=== PATIENT | male | born 1935 | race Caucasian/White ===

== ENCOUNTER → 2016-04-17 | Outpatient (CLI) | payer OTHER ==
[2015-04-03 12:57] VITALS: BP 146/81; PULSE 69
[~2016-04-17] MED LIST: AMLO-110 PO; ASPCH81X PO; DIVA500T5 PO; FESO4TAB PO; HYDR12.55 PO; METO1TAB31 PO; ROSU5TAB PO; SERT1TAB71 PO; TAMS0.4C38 PO
[2016-04-17 13:46] VITALS: BP_SYST 127; BP_SYST 147; BP_DIAS 77; BP_DIAS 78; PULSE 68; TEMP 36.4; O2SAT 96
--- NOTE | 2016-04-18 08:49 | Radiation Oncology Follow-Up ---
Radiation Oncology Follow-Up Date of Visit Apr 17, 2016. Reason For Visit Annual follow-up Radiation Completion Date Seed implant on 12/28/12 Diagnosis (1) Prostate cancer Status: Resolved Onset Date: 08/30/2012 Location: both lobes of the prostate Histology Subtype: adenocarcinoma Stage: ll Permanent Comment: Abnormal digital rectal examination, pretreatment PSA 3.3 Status post ultrasound-guided biopsy, finding of adenocarcinoma the prostate Biopsy stage T2c Austin grade 3+3 Status post seed implant with cesium 131 on 12/28/2012 as monotherapy Last Edited By: Yancy Fitzpatrick on Apr 03, 2015 13:27 Interim History He's been doing well over this past year. His AUA score was 4. This is unchanged from last year. He completed and expanded prostate cancer index composite for clinical practice and gave a score of one of 12 and urinary incontinence symptoms. He gave a score of 0 12 in urinary irritation symptoms. He gave a score of 0 12 bowel symptoms. He gave score of 6 of 12 in sexual symptoms. He gave a score of one of 12 and hormonal vitality symptoms. His total was 8 of 60. He does continue to take the tamsulosin once daily. He had a PSA 09/20/2015 and it was 0.54. He had a PSA 03/20/2016 which was 0.32. He had previously been on Toviaz for urinary urgency. He steadily improved and no longer requires that medication. Allergies Coded Allergies: Cephalosporins (Verified Allergy, Intermediate, HIVES, 12/24/12) Moxifloxacin (Verified Allergy, Mild, RASH, 12/24/12) Penicillins (Verified Allergy, Mild, 04/20/09) Home Medications Scheduled Amlodipine (Norvasc), 5 MG PO DAILY Aspirin (Aspirin Chewable), 81 MG PO DAILY Divalproex Sodium (Depakote Delay Rel), 250 MG PO QAM Hydrochlorothiazide (Hydrochlorothiazide), 1 TAB PO DAILY Metoprolol Succinate (Toprol Xl), 25 MG PO QAM Rosuvastatin Calcium (Crestor), 5 MG PO HS Sertraline Hcl (Zoloft), 50 MG PO HS Tamsulosin Hcl (Flomax), 0.4 MG PO DAILY Review of Systems Gastrointestinal: Symptoms: WNL GI Comments: No fiber supplements; Oral: Symptoms: No Problems Respiratory: Symptoms: WNL Urinary: Symptoms: WNL Comments: 1 or less voids/night;Taking tamsulosin; Skin: Symptoms: No Problems Physical Exam Vital Signs Date Time Temp Pulse Resp B/P Pulse Ox O2 Delivery O2 Flow Rate FiO2 04/17/16 13:46 36.4 68 16 147/78 96 127/77 Pain: Pain Location: None Patient Pain Scale: 0 - 10 Initial Pain Intensity: 0.0 Fatigue: None General Appearance: no apparent distress Eyes: normal inspection, EOMI ENT: normal ENT inspection, hearing grossly normal Neck: no adenopathy Respiratory/Chest: lungs clear, no respiratory distress, no accessory muscle use Cardiovascular: regular rate, rhythm, no gallop, no murmur Abdomen: non tender, soft, no organomegaly Anal / Rectum: Normal sphincter tone. Prostate without nodules and consistent with seed implant. No rectal masses and no rectal bleeding. Extremities: no pedal edema Neurologic/Psychiatric: no motor/sensory deficits, alert, normal mood/affect Laboratory Studies PSAs as reviewed above. Assessment & Plan Plan: Continue regular follow-up with Dr. Maria he has a follow-up appointment scheduled. We asked him to return to our office in 1 year. An order was given to have a PSA prior to that visit. Copies of the test result will be sent to Dr. Maria and Dr. Smiley. We did discuss possible discontinuation of the tamsulosin. His AUA score is been for over the past 2 years. He stated he will discuss this with Dr. Maria before stopping the medication. Total Time In Follow-Up I spent 15 minutes speaking to the patient performing examination. I spent 15 minutes reviewing information in completing this note. Copy To Saul Maria MD; Karson Smiley D.O.
== END | disposition home or self-care (01) ==
LOC: C.ONC 13:40
PROVIDERS: ATTEND Radiology Radiation Oncology
DX: Z08 Encounter for follow-up examination after completed treatment for malignant neoplasm (principal); Z92.3 Personal history of irradiation; Z85.46 Personal history of malignant neoplasm of prostate

== ENCOUNTER → 2017-04-21 | Outpatient (CLI) | payer OTHER ==
[2015-04-03 12:57] VITALS: BP 146/81; PULSE 69
[~2017-04-21] MED LIST changes: -FESO4TAB PO; +METO-478 PO; -METO1TAB31 PO; +TYLER650 PO
[2017-04-21 13:07] VITALS: BP 144/85; PULSE 62; TEMP 36.4; O2SAT 95
--- NOTE | 2017-04-21 14:18 | Radiation Oncology Follow-Up ---
Radiation Oncology Follow-Up Date of Visit Apr 21, 2017. Reason For Visit Annual visit Radiation Completion Date Seed Implant 12/28/12 Diagnosis (1) Prostate cancer Status: Resolved Onset Date: 08/30/2012 Location: both lobes of prostate Histology Subtype: adenocarcinoma Stage: ll Permanent Comment: Abnormal digital rectal examination, pretreatment PSA 3.3 Status post ultrasound-guided biopsy, finding of adenocarcinoma the prostate Biopsy stage T2c Baxter grade 3+3 Status post seed implant with cesium 131 on 12/28/2012 as monotherapy Last Edited By: Yancy Fitzpatrick on Apr 03, 2015 13:27 Interim History He's been doing well over this past year. His urinary status is stable. He gave an AUA score of 4. Last year he gave a score of 4. He completed and expanded prostate cancer index composite for clinical practice and gave a score of 2 of 12 and urinary incontinence symptoms. He gave a score of one of 12 urinary irritation symptoms. He was score of 0 12 and bowel symptoms. He gave a score of 8 of 12 in sexual symptoms. He gave a score of one of 12 and hormonal vitality symptoms. His total was 12 of 60. He's been followed closely with recheck PSAs. He has these performed at [facility]. He had a PSA 09/18/2016 that was 0.20. On 10/01/2017 the PSA was 0.15. He continues to take tamsulosin. Allergies Coded Allergies: Cephalosporins (Verified Allergy, Intermediate, HIVES, 12/24/12) Moxifloxacin (Verified Allergy, Mild, RASH, 12/24/12) Penicillins (Verified Allergy, Mild, 04/20/09) Home Medications Scheduled Acetaminophen (Tylenol Arthitis Ext Rel), 650 MG PO DAILY Amlodipine (Norvasc), 5 MG PO DAILY Aspirin (Aspirin Chewable), 81 MG PO DAILY Divalproex Sodium (Depakote Delay Rel), 250 MG PO QAM Hydrochlorothiazide (Hydrochlorothiazide), 1 TAB PO DAILY Metoprolol Succinate (Toprol Xl), 25 MG PO QAM Rosuvastatin Calcium (Crestor), 5 MG PO HS Sertraline Hcl (Zoloft), 50 MG PO HS Tamsulosin Hcl (Flomax), 0.4 MG PO DAILY Review of Systems Gastrointestinal: Symptoms: WNL GI Comments: No fiber supplements; Oral: Symptoms: No Problems Respiratory: Symptoms: WNL Urinary: Symptoms: WNL Comments: See AUA & EPIC Skin: Symptoms: No Problems Physical Exam Vital Signs Date Time Temp Pulse Resp B/P (MAP) Pulse Ox O2 Delivery O2 Flow Rate FiO2 04/21/17 13:07 36.4 62 16 144/85 95 Fatigue: None General Appearance: no apparent distress Eyes: normal inspection, EOMI ENT: normal ENT inspection, hearing grossly normal Neck: no adenopathy, thyroid normal Respiratory/Chest: lungs clear, no respiratory distress, no accessory muscle use Cardiovascular: regular rate, rhythm, no gallop, no murmur Abdomen: non tender, soft, no organomegaly Anal / Rectum: External hemorrhoids. Normal sphincter tone. No rectal masses and no rectal bleeding. Last state consistent with the seed implant. Extremities: no pedal edema Neurologic/Psychiatric: no motor/sensory deficits, alert, normal mood/affect Skin: warm/dry Pain Management Patient Reports Pain: No Patient Preferred Pain Scale: 0 - 10 Initial Pain Intensity: 0.0 Pain Management Plan He denied pain therefore requires no pain management. Laboratory Laboratory Results: were reviewed Laboratory Comments: PSAs were reviewed in the interim history. Pathology Pathology Results: not applicable Imaging Imaging Studies: were reviewed, and pertinent findings noted below Assessment & Plan Plan: Again this year we discussed discontinuing the Flomax. His AUA score is very good. He stated that he will discuss it with Dr. Maria. I reviewed with him potential side effects of orthostatic hypotension as well as floppy iris syndrome. He'll continue discuss this with Dr. Maria. He'll be having recheck PSA prior to his next visit. A follow-up appointment with our office was not given. He may now continue his follow-up with Dr. Maria. He may call our office if he has any questions or concerns in the interim. Total Time In Follow-Up I spent 20 minutes speaking to the patient performing examination. I spent 15 minutes reviewing information and completing this note. Copy To Saul Maria MD; Karson Smiley D.O.
== END | disposition home or self-care (01) ==
LOC: C.ONC 13:00
PROVIDERS: ATTEND Physician Assistant Medical
DX: Z08 Encounter for follow-up examination after completed treatment for malignant neoplasm (principal); Z92.3 Personal history of irradiation; Z85.46 Personal history of malignant neoplasm of prostate

== ENCOUNTER 2022-05-03 20:11 | Observation (INO) ==
[2022-05-03] MEDS ORDERED: SODIUM CHLORIDE 0.9% 500 ML IV ONE (20:30)
[2022-05-03] MEDS ORDERED: KETOROLAC TROMETHAMINE 15 MG/ML VIAL IV STA (20:54)
[2022-05-03 20:55] LABS: Basophils # (auto) 0.05 K/uL (0-0.2); Basophils % (auto) 0.6 %; Eosinophils # (auto) 0.39 K/uL (0-0.50); Eosinophils % (auto) 4.3 %; Hemoglobin 14.4 g/dl (14.0-18.0); Immature Granulocytes # (auto) 0.06 K/uL (0.01-0.20); Immature Granulocytes % (auto) 0.7 %; Lymphocytes # (auto) 2.19 K/uL (1.2-3.4); Lymphocytes % (auto) 24.1 %; Mean Corpuscular Hemoglobin 31.6 pg (25.0-34.0); Mean Corpuscular Hgb Conc 35.1 g/dL (32.0-36.0); Mean Corpuscular Volume 89.9 fL (80.0-100.0); Mean Platelet Volume 9.9 fL (9.4-12.4); Monocytes # (auto) 0.66 K/uL (0.11-0.59); Monocytes % (auto) 7.3 %; Neutrophils # (auto) 5.73 K/uL (1.40-6.50); Platelet Count 204 K/uL (130-400); RDW Coefficient of Variation 13.4 % (11.5-14.5); Red Blood Count 4.56 M/uL (4.70-6.10); White Blood Count 9.08 K/ul (4.8-10.8)
--- NOTE | 2022-05-03 21:04 | XRay Report ---
XR chest 1V portable HISTORY: 86 years-old Male Chest pain, nonspecific acute chest pain COMPARISON: 12/16/2012 TECHNIQUE: AP view of the chest FINDINGS: Cardiomediastinal and hilar silhouettes are within normal limits. No pneumothorax, large pleural effu rupinder or overt pulmonary edema. Mild subsegmental bibasilar atelectasis. Bones appear grossly intact. IMPRESSION: No acute process. ACT 112: Negative or not required by law. The above report was generated using voice recognition software. It may contain grammatical, syntax o r spelling errors. Electronically signed by: Alok Tellez M.D. 05/03/2022 9:02 PM
[2022-05-03 21:14] LABS: Albumin Globulin Ratio 1.4 (0.9-2); Albumin Level 4.2 gm/dl (3.4-5.0); BUN Creatinine Ratio 19.5 (10-20); Bilirubin,Total 0.6 mg/dl (0.2-1.0); Calcium 8.7 mg/dl (8.5-10.1); Creatinine Clr Calc Pharmacy 52.9 ml/min; Est GFR (African American) 68.8 ml/min; Est GFR (Non-African American) 59.4 ml/min; Globulin 2.9 gm/dl (2.5-4.0); Magnesium 2.1 mg/dl (1.7-2.4); Phosphorus 2.9 mg/dl (2.5-4.9); Potassium 3.9 mmol/L (3.5-5.1); Total Protein 7.1 gm/dl (6.0-8.3)
[2022-05-03 21:17] LABS: Troponin I High Sensitivity 7.6 pg/ml (0-20)
[2022-05-03 21:24] LABS: INR 0.9 (0.9-1.1); Prothrombin Time 10.1 Seconds (9.0-12.0)
[2022-05-03] MEDS ORDERED: OPTIRAY 320 500ml IV ONE (21:29)
--- NOTE | 2022-05-03 22:04 | CT Scan Report ---
CT angio chest PE protocol CT DOSE: 703.88 mGy.cm HISTORY: 86 years-old Male with left sided cp, sob, r/o PE. Acute left-sided chest pain with shortn ess of breath TECHNIQUE: Multiple CTA images of the chest were obtained after the intravenous administration of 113 ml Optiray. Coronal and sagittal MIPS were obtained from the axial data set and were submitted for review. All measurements were obtained according to NASCET criteria. A dose lowering technique was u tilized adhering to the principles of ALARA. COMPARISON: None. FINDINGS: CTA: Heart is normal in size. Extensive coronary artery calcifications. No thoracic aortic aneurysm or dis section. The lobar, segmental and subsegmental pulmonary emboli within the left upper lobe and lingul a. No definite evidence of right heart strain. CT CHEST: No thyroid nodule or lymphadenopathy identified. Trace left pleural effusion. The inferior right lung base is only partially imaged. No pneumothorax o r overt pulmonary edema. Mild left basilar atelectasis with subsegmental consolidation of the inferio r segment lingula. No acute process of the imaged upper abdomen. Unremarkable soft tissues. Degenerative changes of the shoulders and spine. IMPRESSION: 1. Acute appearing left-sided pulmonary emboli with trace left pleural effusion. 2. Subsegmental consolidation of the inferior segment lingula may represent atelectasis versus a smal l developing pulmonary infarct. ACT 112: Negative or not required by law. The above report was generated using voice recognition software. It may contain grammatical, syntax o r spelling errors. Electronically signed by: Alok Tellez M.D. 05/03/2022 10:02 PM
--- NOTE | 2022-05-03 22:45 | Emergency Department Note ---
Impression & Plan Pulmonary embolism on left, Pulmonary infarct, Pleuritic chest pain, History of COVID-19 ED Provider Note NAME: TIGRE ESPOSITO AGE: 86 SEX: M ARRIVES VIA: Walk-In INFORMANT: Patient ED PROVIDER(S): Harvinder Betancourt MD CHIEF COMPLAINT: Chest pain PLAN: Disposition: Admit MEDICAL DECISION MAKING: The patient is a pleasant 86-year-old gentleman with a past medical history of hypertension, hyperlipidemia, asthma who presents to the emergency department via walk-in for evaluation of left-sided chest pain that has been ongoing since yesterday evening which began in his shoulder and radiates to his left shoulder blade and has been constant since then. He reports ongoing shortness of breath with minimal exertion ever since having COVID-19 in February and does not feel this is changed in any way. He reports in March it was suspected he had a bacterial infection following his COVID and so completed 10 days of antibiotics after which she reports his cough and congestion improved significantly. He denies any fevers, nausea, vomiting, diarrhea or urinary symptoms. He is not on anticoagulation. On arrival the patient is in no acute distress, afebrile stable vital signs. O2 saturations 95% on room air. EKG without overt acute ischemia. CXR negative for acute cardiopulmonary process. WBC and platelets within normal limits. Hemoglobin within normal limits. Chemistry without metabolic acidosis. Electrolytes LFTs unremarkable. High-sensitivity troponin 7.6, within normal limits. Lipase not elevated. Given the patient's relatively recent COVID-19 infection with pleuritic symptoms we did agree to proceed with CTA of the chest. CT demonstrates acute appearing left-sided pulmonary emboli with trace left pleural effusion that correlates wi th the patient's symptoms. Note is made of subsegmental consolidation of the inferior lingula which may represent atelectasis versus small developing pulmonary infarct. Given the extent of the CT findings reasonable to proceed with admission for further management, and the patient was in agreement. Case was discussed with Dr. Odell, [facility] hospitalist, who will evaluate the patient for admission. Agrees with heparin to initiate treatment. Patient denies any history of GI bleeding or bleeding otherwise. Triage Nursing notes reviewed and agree them. Prior/outside medical records reviewed Vital Signs: reviewed Differential diagnosis: Cardiac ischemia, aortic dissection, pulmonary embolism, pneumothorax, pneum onia, pericarditis, myocarditis, esophageal rupture, GERD, cholecystitis, pancreatitis, musculoskeletal, as well as other pathologies. ER treatment provided: See below. Diagnostics interpreted by me: ECG: Normal sinus rhythm, 72 bpm, no ectopy, nonspecific ST and T wave abnormality, no overt ST elevation or depression, QTc 451, cures 96 Cardiac Monitoring: An order for continuous cardiac monitoring was placed and demonstrated Normal sinus rhythm, 72 bpm, no ectopy. Laboratory studies: See below Imaging studies: See below Consultation(s): Case was discussed with Dr. Odell, [facility] hospitalist, who will evaluate the patient for admission. HPI: The patient is a pleasant 86-year-old gentleman with a past medical history of hypertension, hyperlipidemia, asthma who presents to the emergency department via walk-in for evaluation of left-sided chest pain that has been ongoing since yesterday evening which began in his shoulder and radiates to his left shoulder blade and has been constant since then. He reports ongoing shortness of breath with minimal exertion ever since having COVID-19 in February and does not feel this is changed in any way. He reports in March it was suspected he had a bacterial infection following his COVID and so completed 10 days of antibiotics after which she reports his cough and congestion improved significantly. He denies any fevers, nausea, vomiting, diarrhea or urinary symptoms. He is not on anticoagulation. ROS: See above HPI for pertinent positives & negatives. A total of 10 systems reviewed and were otherwise negative. VITALS:See Below PHYSICAL EXAMINATION: GENERAL: Awake, alert, well-appearing, in no distress HENT: Normocephalic, atraumatic. Oropharynx with dry mucous membranes and otherwise unremarkable. EYES: Normal conjunctiva. Sclera non-icteric. NECK: Supple. No nuchal rigidity. FROM. No JVD. RESPIRATORY: Clear to auscultation. CARDIAC: Regular rate, normal rhythm. Extremities warm and well perfused. Pulses equal. ABDOMEN: Soft, non-distended. No tenderness to palpation. No rebound or guarding. No masses. RECTAL: Deferred. MUSCULOSKELETAL: Chest examination reveals no tenderness. The back is symmetrical on inspection without obvious abnormality. There is no CVA tenderness to palpation. No joint edema. LOWER EXTREMITIES: Calves are equal size bilaterally and non-tender. No edema. No discoloration. NEURO: Normal sensorium. No sensory or motor deficits noted. SKIN: No rash or jaundice noted. ED COURSE: Critical Care: I have personally spent greater than 35 minutes of critical care time in the direct management of this patient. This includes bedside care, interpretation of diagnostic studies, and testing, discussion with consultants, patient, and family members, and other required patient management activities. This 35 minutes is in excess of all separately billable procedures. Harvinder Betancourt MD Past Med/Surg History Medical History Anxiety Epistaxis HX History of COVID-19 Hyperlipidemia Hypertension Migraine HX Osteoarthritis Prostate cancer (08/30/12) RESOLVED FOR 5 YRS NOW - RADIOACTIVE SEEDS Surgical History History of adenoidectomy History of colonoscopy History of nasal surgery POLYPS REMOVED History of right cataract surgery History of tonsillectomy Hx of hernia repair Family History Other Colorectal cancer Social History Smoking Status: Former smoker Second Hand Exposure: No; Hx Alcohol Use: Yes Alcohol type: beer Hx Substance Use: No Preferred Language: Eritrean Communication Ability: Effective Print Color Operator Required: No Beliefs That Will Affect Care: None marital status: Current Living Situation: Spouse Feels Safe at Home: Yes Assistive Devices: Glasses and Hearing Aid - Left Allergies Allergies Allergy/AdvReac Type Severity Reaction Status Date / Time Cephalosporins Allergy Intermediate HIVES Verified 05/03/22 22:03 moxifloxacin Allergy Mild RASH Verified 05/03/22 22:03 Penicillins Allergy Mild Hives Verified 05/03/22 22:03 Home Meds Home Medications Medication Instructions Recorded Confirmed acetaminophen 650 mg 650 mg PO QAM 04/08/18 05/03/22 tablet,extended release (Tylenol Arthritis Pain) amlodipine 5 mg tablet 5 mg PO QAM 04/08/18 05/03/22 divalproex 250 mg tablet,delayed 250 mg PO QAM 04/08/18 05/03/22 release hydrochlorothiazide 12.5 mg capsule 12.5 mg PO HS 04/08/18 05/03/22 metoprolol succinate 25 mg 25 mg PO QAM 04/08/18 05/03/22 tablet,extended release 24 hr rosuvastatin 5 mg tablet 5 mg PO QPM 04/08/18 05/03/22 budesonide 0.5 mg/2 mL suspension 0.5 mg inhalation DAILY PRN 05/03/22 05/03/22 for nebulization (Pulmicort) Congestion diclofenac sodium 1 % topical gel 1 ea topical DAILY 05/03/22 05/03/22 loperamide 2 mg tablet 2 mg PO QID PRN Diarrhea 05/03/22 05/03/22 losartan 50 mg tablet 50 mg PO QAM 05/03/22 05/03/22 sertraline 100 mg tablet 100 mg PO QAM 05/03/22 05/03/22 Previous Rx's Medication Instructions Recorded solifenacin 5 mg tablet (Vesicare) 5 mg PO DAILY #90 tabs 11/26/21 tamsulosin 0.4 mg capsule 0.4 mg PO DAILY #90 caps 11/26/21 Results & Data (ED) Vital Signs Vital Signs - 24 hr 05/03/22 20:14 05/03/22 20:29 05/03/22 20:29 Temperature 36.6 C Temperature Source Temporal Artery Scan Pulse Rate 81 68 Pulse Rate [Apical] 68 Pulse Rate from SpO2 Sensor Pulse Rhythm Respiratory Rate 18 20 20 Respiratory Effort / Characteristics Non-Labored Spontaneous Respiratory Depth Normal Respiratory Pattern Regular Blood Pressure 148/94 H 150/86 H Blood Pressure [Right Arm] Blood Pressure Mean 112 107 Blood Pressure Mean [Right Arm] Pulse Oximetry 94 96 96 Oxygen Delivery Method Room Air Room Air Room Air Sepsis Recent Fever Within 48 Hours No Sepsis New/Unexplained Change in Mental Status No Sepsis Action Taken by Nursing No Action Required 05/03/22 20:29 05/03/22 20:45 05/03/22 20:37 Temperature Temperature Source Pulse Rate 68 73 Pulse Rate [Apical] Pulse Rate from SpO2 Sensor Pulse Rhythm Regular Respiratory Rate 20 Respiratory Effort / Characteristics Respiratory Depth Respiratory Pattern Blood Pressure Blood Pressure [Right Arm] Blood Pressure Mean Blood Pressure Mean [Right Arm] Pulse Oximetry 96 98 Oxygen Delivery Method Room Air Room Air Sepsis Recent Fever Within 48 Hours Sepsis New/Unexplained Change in Mental Status Sepsis Action Taken by Nursing 05/03/22 22:14 05/03/22 20:37 05/03/22 21:00 Temperature Temperature Source Pulse Rate 74 Pulse Rate [Apical] 66 Pulse Rate from SpO2 Sensor 75 Pulse Rhythm Respiratory Rate 19 22 Respiratory Effort / Characteristics Respiratory Depth Respiratory Pattern Blood Pressure 129/77 Blood Pressure [Right Arm] 142/81 H Blood Pressure Mean 94 Blood Pressure Mean [Right Arm] 101 Pulse Oximetry 95 96 Oxygen Delivery Method Sepsis Recent Fever Within 48 Hours Sepsis New/Unexplained Change in Mental Status Sepsis Action Taken by Nursing 05/03/22 21:00 05/03/22 22:13 05/03/22 22:14 Temperature Temperature Source Pulse Rate 64 78 Pulse Rate [Apical] Pulse Rate from SpO2 Sensor 64 Pulse Rhythm Respiratory Rate 17 Respiratory Effort / Characteristics Respiratory Depth Respiratory Pattern Blood Pressure 142/81 H Blood Pressure [Right Arm] Blood Pressure Mean 101 Blood Pressure Mean [Right Arm] Pulse Oximetry 96 Oxygen Delivery Method Sepsis Recent Fever Within 48 Hours Sepsis New/Unexplained Change in Mental Status Sepsis Action Taken by Nursing 05/03/22 22:14 05/03/22 22:30 05/03/22 22:30 Temperature Temperature Source Pulse Rate 66 62 Pulse Rate [Apical] Pulse Rate from SpO2 Sensor 70 63 Pulse Rhythm Respiratory Rate 17 20 Respiratory Effort / Characteristics Respiratory Depth Respiratory Pattern Blood Pressure 138/90 Blood Pressure [Right Arm] Blood Pressure Mean 106 Blood Pressure Mean [Right Arm] Pulse Oximetry 95 96 Oxygen Delivery Method Sepsis Recent Fever Within 48 Hours Sepsis New/Unexplained Change in Mental Status Sepsis Action Taken by Nursing 05/03/22 23:00 05/03/22 23:00 05/03/22 23:30 Temperature Temperature Source Pulse Rate 60 Pulse Rate [Apical] Pulse Rate from SpO2 Sensor 61 Pulse Rhythm Respiratory Rate 21 Respiratory Effort / Characteristics Respiratory Depth Respiratory Pattern Blood Pressure 145/92 H 151/90 H Blood Pressure [Right Arm] Blood Pressure Mean 109 110 Blood Pressure Mean [Right Arm] Pulse Oximetry 95 Oxygen Delivery Method Sepsis Recent Fever Within 48 Hours Sepsis New/Unexplained Change in Mental Status Sepsis Action Taken by Nursing 05/03/22 23:30 Temperature Temperature Source Pulse Rate 61 Pulse Rate [Apical] Pulse Rate from SpO2 Sensor 61 Pulse Rhythm Respiratory Rate 22 Respiratory Effort / Characteristics Respiratory Depth Respiratory Pattern Blood Pressure Blood Pressure [Right Arm] Blood Pressure Mean Blood Pressure Mean [Right Arm] Pulse Oximetry 96 Oxygen Delivery Method Sepsis Recent Fever Within 48 Hours Sepsis New/Unexplained Change in Mental Status Sepsis Action Taken by Nursing Laboratory Data Attestation: I reviewed the patient's lab results. 05/03/22 20:41 05/03/22 20:41 Lab Results 02/05/03/22 05/03/22 Range/Units 20:41 20:41 20:41 WBC 9.08 (4.8-10.8) K/ul RBC 4.56 L (4.70-6.10) M/uL Hgb 14.4 (14.0-18.0) g/dl Hct 41.0 L (42.0-52.0) % MCV 89.9 (80.0-100.0) fL MCH 31.6 (25.0-34.0) pg MCHC 35.1 (32.0-36.0) g/dL RDW Std Deviation 44.0 (36.4-46.3) fL RDW Coeff of Quin 13.4 (11.5-14.5) % Plt Count 204 (130-400) K/uL MPV 9.9 (9.4-12.4) fL Immature Gran % (Auto) 0.7 % Neut % (Auto) 63.0 % Lymph % (Auto) 24.1 % Bureau % (Auto) 7.3 % Eos % (Auto) 4.3 % Baso % (Auto) 0.6 % Neut # (Auto) 5.73 (1.40-6.50) K/uL Lymph # (Auto) 2.19 (1.2-3.4) K/uL Bureau # (Auto) 0.66 H (0.11-0.59) K/uL Eos # (Auto) 0.39 (0-0.50) K/uL Baso # (Auto) 0.05 (0-0.2) K/uL Immature Gran # (Auto) 0.06 (0.01-0.20) K/uL PT 10.1 (9.0-12.0) Seconds INR 0.9 (0.9-1.1) APTT (21.0-31.0) Seconds PTT Ratio Sodium 138 (136-145) mmol/L Potassium 3.9 (3.5-5.1) mmol/L Chloride 104 (98-107) mmol/L Carbon Dioxide 28 (21-32) mmol/L Anion Gap 6 (3-11) BUN 22 (6-23) mg/dl Creatinine 1.13 (0.6-1.4) mg/dl Est Cr Clr Drug Dosing 52.9 ml/min Est GFR ( Amer) 68.8 ml/min Est GFR (Non-Af Amer) 59.4 ml/min BUN/Creatinine Ratio 19.5 (10-20) Glucose 153 H (70-99(Fasting)) mg/dl Calcium 8.7 (8.5-10.1) mg/dl Phosphorus 2.9 (2.5-4.9) mg/dl Magnesium 2.1 (1.7-2.4) mg/dl Total Bilirubin 0.6 (0.2-1.0) mg/dl AST 16 (13-39) U/L ALT 17 (7-52) U/L Alkaline Phosphatase 54 (34-104) U/L Troponin I High Sens 7.6 (0-20) pg/ml Total Protein 7.1 (6.0-8.3) gm/dl Albumin 4.2 (3.4-5.0) gm/dl Globulin 2.9 (2.5-4.0) gm/dl Albumin/Globulin Ratio 1.4 (0.9-2) Lipase 33 (11-82) U/L 05/03/22 Range/Units 20:41 WBC (4.8-10.8) K/ul RBC (4.70-6.10) M/uL Hgb (14.0-18.0) g/dl Hct (42.0-52.0) % MCV (80.0-100.0) fL MCH (25.0-34.0) pg MCHC (32.0-36.0) g/dL RDW Std Deviation (36.4-46.3) fL RDW Coeff of Quin (11.5-14.5) % Plt Count (130-400) K/uL MPV (9.4-12.4) fL Immature Gran % (Auto) % Neut % (Auto) % Lymph % (Auto) % Bureau % (Auto) % Eos % (Auto) % Baso % (Auto) % Neut # (Auto) (1.40-6.50) K/uL Lymph # (Auto) (1.2-3.4) K/uL Bureau # (Auto) (0.11-0.59) K/uL Eos # (Auto) (0-0.50) K/uL Baso # (Auto) (0-0.2) K/uL Immature Gran # (Auto) (0.01-0.20) K/uL PT (9.0-12.0) Seconds INR (0.9-1.1) APTT 30.2 (21.0-31.0) Seconds PTT Ratio 1.1 Sodium (136-145) mmol/L Potassium (3.5-5.1) mmol/L Chloride (98-107) mmol/L Carbon Dioxide (21-32) mmol/L Anion Gap (3-11) BUN (6-23) mg/dl Creatinine (0.6-1.4) mg/dl Est Cr Clr Drug Dosing ml/min Est GFR ( Amer) ml/min Est GFR (Non-Af Amer) ml/min BUN/Creatinine Ratio (10-20) Glucose (70-99(Fasting)) mg/dl Calcium (8.5-10.1) mg/dl Phosphorus (2.5-4.9) mg/dl Magnesium (1.7-2.4) mg/dl Total Bilirubin (0.2-1.0) mg/dl AST (13-39) U/L ALT (7-52) U/L Alkaline Phosphatase (34-104) U/L Troponin I High Sens (0-20) pg/ml Total Protein (6.0-8.3) gm/dl Albumin (3.4-5.0) gm/dl Globulin (2.5-4.0) gm/dl Albumin/Globulin Ratio (0.9-2) Lipase (11-82) U/L Administered Medications Heparin Sodium/Dextrose (Heparin Sodium/Dextrose) 25,000 units in 500 mls @ 0.02 mls/hr IV .Q24H [facility]; Protocol Stop: 06/02/22 23:29 Last Admin: 05/03/22 23:31 Dose: 1,400 units/hr, 28 mls/hr Documented By: MAYRA Co-signed By: GARTH Discontinued Medications Heparin Sodium (Porcine) (Heparin Sod (Porcine) 1000 Unit/Ml) 1 units IV NOW ONE Stop: 05/03/22 23:28 Last Admin: 05/03/22 23:31 Dose: 6,000 units Documented By: MAYRA Co-signed By: GARTH Heparin Sodium/Dextrose (Heparin Iv Adult Wt-Based Standard With Bolus Protocol) 1 each IV NOW STA; Protocol Stop: 05/03/22 23:12 Last Admin: 05/03/22 23:32 Dose: Not Given Documented By: MAYRA Sodium Chloride (Nss) 500 mls @ 999 mls/hr IV .Q31M ONE Stop: 05/03/22 21:00 Last Infusion: 05/03/22 21:01 Dose: 0 mls/hr Documented By: Admin: 05/03/22 20:51 Dose: 999 mls/hr Documented By: LETICIA Ioversol (Optiray 320 500ml) 113 ml IV ONCE ONE Stop: 05/03/22 21:30 Last Admin: 05/03/22 21:30 Dose: 113 ml Documented By: NU Ketorolac Tromethamine (Ketorolac Tromethamine 15 Mg/Ml Vial) 15 mg IV NOW STA Stop: 05/03/22 20:55 Last Admin: 05/03/22 21:15 Dose: 15 mg Documented By: LETICIA Imaging Data Radiologist's Impression: Chest X-Ray 05/03/22 20:30 XR chest 1V portable HISTORY: 86 years-old Male Chest pain, nonspecific acute chest pain COMPARISON: 12/16/2012 TECHNIQUE: AP view of the chest FINDINGS: Cardiomediastinal and hilar silhouettes are within normal limits. No pneumothorax, large pleural effusion or overt pulmonary edema. Mild subsegmental bibasilar atelectasis. Bones appear grossly intact. IMPRESSION: No acute process. ACT 112: Negative or not required by law. The above report was generated using voice recognition software. It may contain grammatical, syntax or spelling errors. Electronically signed by: Alok Tellez M.D. 05/03/2022 9:02 PM Chest CTA 05/03/22 20:54 CT angio chest PE protocol CT DOSE: 703.88 mGy.cm HISTORY: 86 years-old Male with left sided cp, sob, r/o PE. Acute left-sided chest pain with shortness of breath TECHNIQUE: Multiple CTA images of the chest were obtained after the intravenous administration of 113 ml Optiray. Coronal and sagittal MIPS were obtained from the axial data set and were submitted for review. All measurements were obtained according to NASCET criteria. A dose lowering technique was utilized a dhering to the principles of ALARA. COMPARISON: None. FINDINGS: CTA: Heart is normal in size. Extensive coronary artery calcifications. No thoracic aortic aneurysm or dissection. The lobar, segmental and subsegmental pulmonary emboli within the left upper lobe and lingula. No definite evidence of right hea rt strain. CT CHEST: No thyroid nodule or lymphadenopathy identified. Trace left pleural effusion. The inferior right lung base is only partially imaged. No pneumothorax or overt pulmonary edema. Mild left basilar atelectasis with subsegmental consolidation of the inferior segment lingula. No acute process of the imaged upper abdomen. Unremarkable soft tissues. Degenerative changes of the shoulders and spine. IMPRESSION: 1. Acute appearing left-sided pulmonary emboli with trace left pleural effusion. 2. Subsegmental consolidation of the inferior segment lingula may represent atelectasis versus a small developing pulmonary infarct. ACT 112: Negative or not required by law. The above report was generated using voice recognition software. It may contain grammatical, syntax or spelling errors. Electronically signed by: Alok Tellez M.D. 05/03/2022 10:02 PM Discharge Plan Visit Data Chief Complaint: Chest Pain Stated Complaint: DISCOMFORT AND PAIN IN CHEST ED Provider: Harvinder Betancourt Discharge Problem: Pulmonary embolism on left, Pulmonary infarct, Pleuritic chest pain, History of COVID-19 Forms Stand Alone Forms: My [facility] [employer] Prescriptions Prescriptions: No Action tamsulosin 0.4 mg capsule 0.4 mg PO DAILY Qty: 90 3RF Rx Instructions: 30 minutes after a meal solifenacin [Vesicare] 5 mg tablet 5 mg PO DAILY Qty: 90 3RF divalproex 250 mg tablet,delayed release (DR/EC) 250 mg PO QAM amlodipine 5 mg tablet 5 mg PO QAM acetaminophen [Tylenol Arthritis Pain] 650 mg Tablet Extended Release 650 mg PO QAM hydrochlorothiazide 12.5 mg capsule 12.5 mg PO HS metoprolol succinate 25 mg tablet extended release 24 hr 25 mg PO QAM rosuvastatin 5 mg tablet 5 mg PO QPM loperamide 2 mg Tablet 2 mg PO QID PRN (Reason: Diarrhea) budesonide [Pulmicort] 0.5 mg/2 mL Suspension For Nebulization 0.5 mg inhalation DAILY PRN (Reason: Congestion) diclofenac sodium 1 % gel 1 ea TOPICAL DAILY Rx Instructions: apply to bilat hands sertraline 100 mg tablet 100 mg PO QAM losartan 50 mg tablet 50 mg PO QAM Referrals Referrals: Gera Alvarado DO [Primary Care Provider] -
[2022-05-03] MEDS ORDERED: Heparin IV Adult Wt-Based Standard WITH Bolus Protocol IV STA (23:11)
[2022-05-03] MEDS ORDERED: HEPARIN SOD (PORCINE) 1000 UNIT/ML IV ONE (23:27)
[2022-05-03] MEDS: HEPARIN SODIUM/DEXTROSE 25,000 UNITS/500 ML BAG IV SCH (23:31)
[2022-05-03 23:47] LABS: Partial Thromboplastin Ratio 1.1; Partial Thromboplastin Time 30.2 Seconds (21.0-31.0)
[2022-05-04] MEDS ORDERED: oxyCODONE HCL IR 5 MG TAB (IMMEDIATE RELEASE) PO PRN (01:59)
[2022-05-04] MEDS ORDERED: ACETAMINOPHEN 325 MG TAB PO PRN (01:59)
[2022-05-04] MEDS ORDERED: POLYETHYLENE (MIRALAX) 17 GM PACK PO PRN (01:59)
[2022-05-04] MEDS ORDERED: BUDESONIDE 0.5 MG/2 ML VIAL (PULMICORT) INH PRN (01:59)
[2022-05-04] MEDS ORDERED: SODIUM CHLORIDE 0.9% 1000ML 1,000 ML IV SCH (01:59)
[2022-05-04] MEDS ORDERED: NITROGLYCERIN SL 0.4 MG/TAB TAB SL PRN (01:59)
--- NOTE | 2022-05-04 05:07 | History and Physical Report ---
DATE OF ADMISSION: 05/04/2022. CHIEF COMPLAINT: Left-sided chest pain, found to have acute PE. HISTORY OF PRESENT ILLNESS: An 86-year-old male with past medical history significant for hyperlipidemia, history of recurrent epistaxis, history of obstructive sleep apnea, on CPAP, hypertension, chronic kidney disease, stage III, history of prostate cancer, history of osteoarthritis, generalized anxiety disorder, presents with chest pain. The patient since yesterday evening having left-sided chest pain 4/10 in severity, no radiation. The patient says has some dizziness and balance issues. No headache, no blurred visions, no earache, no runny nose, no sore throat. The patient was diagnosed with COVID in the end of February. He has chronic shortness of breath, but after COVID sob got little worse .Says he was treated with antibiotics in March for sinusitis. Says chest pain gets worse with deep breath.. Denies any nausea, no abdominal pain. Normal bowel and bladder movements. Denies any bloody stools or black stools. No hematuria. No swelling in the legs. Currently, resting comfortably, hemodynamically stable, saturating okay on room air. ALLERGIES: CEPHALOSPORINS, MOXIFLOXACIN, PENICILLIN. PAST MEDICAL HISTORY: As mentioned above. PAST SURGICAL HISTORY: Colonoscopy, laparoscopic left inguinal hernia repair, nasal endoscopy, cataract surgery, tonsillectomy, adenoidectomy, bilateral inguinal hernia repairs, umbilical hernia repair. MEDICATIONS: The patient is on Tylenol 650 mg p.o. q.a.m., amlodipine 5 mg p.o. a.m., Pulmicort 0.5 mg inhalation daily p.r.n. for congestion, diclofenac sodium topical daily, divalproex 250 mg p.o. a.m., hydrochlorothiazide 12.5 mg p.o. at bedtime, loperamide 2 mg p.o. q.i.d. p.r.n., losartan 50 mg p.o. a.m., metoprolol succinate 25 mg p.o. a.m., rosuvastatin 50 mg p.o. p.m., Seroquel 100 mg p.o. a.m., solifenacin 5-mg tablet p.o. daily, Flomax 0.4 mg p.o. daily. FAMILY HISTORY: Significant for father had heart disorder; mother has heart disorder, hypertension. SOCIAL HISTORY: , no smoking, alcohol rare, no drug use. REVIEW OF SYSTEMS: As per HPI. Rest of review of systems is negative. PHYSICAL EXAMINATION: GENERAL: The patient is obese, not in acute distress. VITAL SIGNS: Temperature 36.6, pulse 61, respiratory rate 22, blood pressure 151/90, oxygen 96% on room air. HEENT: Pupils equal, round and reactive to light. Oral mucosa moist. NECK: No JVD, no neck masses. CARDIOVASCULAR: S1 and S2 heard. Regular rate and rhythm. No murmur, no gallop. RESPIRATORY SYSTEM: Normal AP diameter. No accessory muscle use. No wheezing, no crackles. ABDOMEN: Soft, bowel sounds present, nontender, no distention. CENTRAL NERVOUS SYSTEM: Cranial nerves II through XII grossly intact. Nonfocal. EXTREMITIES: No edema, no erythema, no calf tenderness. LABORATORY DATA: WBC 9, hemoglobin 14.4, hematocrit 41, platelets 204. PT 10.1, INR 0.9, APTT 30.2. Sodium 138, potassium 3.9, chloride 104, bicarb 28, BUN 22, creatinine 1.1, serum glucose 153, calcium 8.7, phosphorus 2.9, magnesium 2.1, total bilirubin 0.6, AST 16, ALT 17, alkaline phosphatase 54. Troponin I high sensitivity 7.6. Lipase 33. IMAGING DATA: Chest x-ray, no acute process. CTA chest 1. Acute appearing left-sided pulmonary emboli with trace left pleural effusion. 2. Subsegmental consolidation of the inferior segment lingula may represent atelectasis versus a small developing pulmonary infarct. EKG: Normal sinus rhythm at a rate of 72, nonspecific ST abnormalities seen. ASSESSMENT AND PLAN: This is an 86-year-old male, who presents with chest pain. 1. Chest pain and also pain was more when taking deep breath. Troponins and EKG, no acute findings. CTA chest showing acute-appearing left-sided pulmonary emboli with trace left pleural effusion, was started on IV heparin in the ER. We will continue with IV heparin for now. We will follow echocardiogram and lower extremity Doppler. For now, we will monitor in the hospital. 2. History of hypertension. Continue amlodipine, losartan, hydrochlorothiazide, metoprolol succinate. We will monitor the blood pressure. 3. History of sleep apnea. CPAP at bedtime. 4. Hyperlipidemia. On statin. 5. Chronic kidney disease, stage III. Creatinine 1.1. Follow the labs. 6. Generalized anxiety disorder. The patient is on Zoloft. 7. Deep venous thrombosis prophylaxis. On IV heparin. DISPOSITION: Closely monitor in the med tele. PT/OT prior to discharge. Social service to help with discharge planning. Job ID: [id number] [facility]
[2022-05-04 06:43] LABS: Basophils # (auto) 0.08 K/uL (0-0.2); Basophils % (auto) 0.9 %; Eosinophils # (auto) 0.42 K/uL (0-0.50); Eosinophils % (auto) 4.8 %; Hematocrit (blood only) 38.6 % (42.0-52.0); Hemoglobin 13.1 g/dl (14.0-18.0); Immature Granulocytes # (auto) 0.04 K/uL (0.01-0.20); Immature Granulocytes % (auto) 0.5 %; Lymphocytes # (auto) 2.58 K/uL (1.2-3.4); Lymphocytes % (auto) 29.3 %; Mean Corpuscular Hemoglobin 30.8 pg (25.0-34.0); Mean Corpuscular Hgb Conc 33.9 g/dL (32.0-36.0); Mean Corpuscular Volume 90.6 fL (80.0-100.0); Mean Platelet Volume 10.3 fL (9.4-12.4); Monocytes # (auto) 0.71 K/uL (0.11-0.59); Neutrophils # (auto) 4.99 K/uL (1.40-6.50); Neutrophils % (auto) 56.5 %; Platelet Count 176 K/uL (130-400); RDW Coefficient of Variation 13.3 % (11.5-14.5); RDW Standard Deviation 44.4 fL (36.4-46.3); Red Blood Count 4.26 M/uL (4.70-6.10); White Blood Count 8.82 K/ul (4.8-10.8)
[2022-05-04 07:17] LABS: BUN Creatinine Ratio 17.5 (10-20); Calcium 8.6 mg/dl (8.5-10.1); Est GFR (African American) 60.3 ml/min; Magnesium 2.2 mg/dl (1.7-2.4); Potassium 4.7 mmol/L (3.5-5.1); Troponin I High Sensitivity 9.2 pg/ml (0-20)
[2022-05-04 07:35] LABS: Partial Thromboplastin Ratio 2.3
[2022-05-04 07:38] LABS: Partial Thromboplastin Time 64.3 Seconds (21.0-31.0)
[2022-05-04] MEDS: DIVALPROEX DELAY RELEASE 250 MG TABEC PO SCH (08:09)
[2022-05-04] MEDS: LOSARTAN POTASSIUM 50 MG TAB PO SCH (08:09)
[2022-05-04] MEDS: METOPROLOL SUCC 25MG EXT REL TAB PO SCH (08:09)
[2022-05-04] MEDS: amLODIPine BESYLATE 5 MG TAB PO SCH (08:09)
[2022-05-04] MEDS: SERTRALINE HCL 100 MG TABLET PO SCH (08:10)
[2022-05-04] MEDS: TAMSULOSIN HCL 0.4 MG CAP PO SCH (08:10)
--- NOTE | 2022-05-04 11:27 | Electrocardiogram Report ---
Test Reason : Blood Pressure : / mmHG Vent. Rate : 072 BPM Atrial Rate : 072 BPM P-R Int : 182 ms QRS Dur : 096 ms QT Int : 412 ms P-R-T Axes : 051 062 091 degrees QTc Int : 451 ms Normal sinus rhythm Normal ECG When compared with ECG of 16-DEC-2012 12:32, No significant change was found Confirmed by iNgel Montes ([id number]) on 05/04/2022 11:27:30 AM Referred By: REFERRED SELF Confirmed By:Nigel Montes
[2022-05-04] MEDS: HEPARIN SODIUM/DEXTROSE 25,000 UNITS/500 ML BAG IV SCH (16:51)
--- NOTE | 2022-05-04 16:56 | Ultrasound Report ---
ULTRASOUND BILATERAL LOWER EXTREMITY VENOUS CLINICAL HISTORY: Pulmonary embolus. Covid. COMPARISON STUDY: No priors. TECHNIQUE: Real-time, grayscale, and color Doppler sonography of the deep veins of the right and left lower extremity was performed from the inguinal crease to the calf. Compression and augmentation wer e utilized. FINDINGS: There is no sonographic evidence of deep venous thrombosis identified in the right or left lower extremity. The common femoral, superficial femoral, and popliteal veins are patent and normally compressible bilaterally. The greater saphenous vein and the profunda femoris vein at the junction w ith the common femoral vein are clear in both legs. The visualized calf veins are patent bilaterally. IMPRESSION: There is no sonographic evidence of deep venous thrombosis identified in the right or lef t lower extremity. ACT 112: Negative or not required by law. Electronically signed by: Milad Chambers M.D. 05/04/2022 4:54 PM
[2022-05-04] MEDS ORDERED: ROSUVASTATIN CALCIUM 5 MG TAB PO SCH (21:00)
[2022-05-04] MEDS ORDERED: hydroCHLOROthiazide 25 MG TAB PO SCH (21:00)
[2022-05-05 07:16] LABS: Partial Thromboplastin Ratio 1.9
[2022-05-05 07:18] LABS: Partial Thromboplastin Time 53.5 Seconds (21.0-31.0)
[2022-05-05] MEDS: METOPROLOL SUCC 25MG EXT REL TAB PO SCH (08:45)
[2022-05-05] MEDS: amLODIPine BESYLATE 5 MG TAB PO SCH (08:45)
[2022-05-05] MEDS: DIVALPROEX DELAY RELEASE 250 MG TABEC PO SCH (08:45)
[2022-05-05] MEDS: LOSARTAN POTASSIUM 50 MG TAB PO SCH (08:45)
[2022-05-05] MEDS: SERTRALINE HCL 100 MG TABLET PO SCH (08:46)
[2022-05-05] MEDS: TAMSULOSIN HCL 0.4 MG CAP PO SCH (08:46)
[2022-05-05 10:28] LABS: Hemoglobin 13.4 g/dl (14.0-18.0); Mean Corpuscular Hemoglobin 30.9 pg (25.0-34.0); Mean Corpuscular Hgb Conc 34.4 g/dL (32.0-36.0); Mean Corpuscular Volume 90.1 fL (80.0-100.0); Platelet Count 191 K/uL (130-400); RDW Coefficient of Variation 13.1 % (11.5-14.5); RDW Standard Deviation 43.8 fL (36.4-46.3); Red Blood Count 4.33 M/uL (4.70-6.10); White Blood Count 7.58 K/ul (4.8-10.8)
[2022-05-05] MEDS: HEPARIN SODIUM/DEXTROSE 25,000 UNITS/500 ML BAG IV SCH (10:32)
[2022-05-05 12:51] LABS: Calcium 8.5 mg/dl (8.5-10.1); Magnesium 2.2 mg/dl (1.7-2.4); Potassium 3.8 mmol/L (3.5-5.1)
[2022-05-05 12:57] LABS: BUN Creatinine Ratio 15.3 (10-20); Creatinine Clr Calc Pharmacy 51.9 ml/min; Est GFR (African American) 61.5 ml/min; Est GFR (Non-African American) 53.1 ml/min; Phosphorus 3.1 mg/dl (2.5-4.9)
--- NOTE | 2022-05-05 14:00 | Discharge Summary ---
Date of Service May 05, 2022 Admission HPI Per Admitting Provider An 86-year-old male with past medical history significant for hyperlipidemia, history of recurrent epistaxis, history of obstructive sleep apnea, on CPAP, hypertension, chronic kidney disease, stage III, history of prostate cancer, history of osteoarthritis, generalized anxiety disorder, presents with chest pain. The patient since yesterday evening having left-sided chest pain 4/10 in severity, no radiation. The patient says has some dizziness and balance issues. No headache, no blurred visions, no earache, no runny nose, no sore throat. The patient was diagnosed with COVID in the end of February. He has chronic shortness of breath, but after COVID sob got little worse .Says he was treated with antibiotics in March for sinusitis. Says chest pain gets worse with deep breath.. Denies any nausea, no abdominal pain. Normal bowel and bladder movements. Denies any bloody stools or black stools. No hematuria. No swelling in the legs. Currently, resting comfortably, hemodynamically stable, saturating okay on room air. Admission Exam Per Admitting Provider GENERAL: The patient is obese, not in acute distress. VITAL SIGNS: Temperature 36.6, pulse 61, respiratory rate 22, blood pressure 151/90, oxygen 96% on room air. HEENT: Pupils equal, round and reactive to light. Oral mucosa moist. NECK: No JVD, no neck masses. CARDIOVASCULAR: S1 and S2 heard. Regular rate and rhythm. No murmur, no gallop. RESPIRATORY SYSTEM: Normal AP diameter. No accessory muscle use. No wheezing, no crackles. ABDOMEN: Soft, bowel sounds present, nontender, no distention. CENTRAL NERVOUS SYSTEM: Cranial nerves II through XII grossly intact. Nonfocal. EXTREMITIES: No edema, no erythema, no calf tenderness. Principal Diagnosis Pulmonary embolism Positive COVID-19 Chest pain Discharge Exam GENERAL:obese M, not in acute distress.on RA, pleasant and comfortable HEENT: NC/AT, EOMI. Pupils equal, round and reactive to light. Oral mucosa moist. NECK: No JVD, no neck masses. CARDIOVASCULAR: S1 and S2 heard. Regular rate and rhythm. No murmur, no gallop. RESPIRATORY: Normal AP diameter. No accessory muscle use. No wheezing, no crackles. ABDOMEN: Soft, bowel sounds present, nontender, no distention. NEURO:Awake alert oriented, answering questions appropriately, pleasant, speech fluent, moves extremities EXTREMITIES: No edema, no erythema, no calf tenderness. Discharge Data Allergies Allergy/AdvReac Type Severity Reaction Status Date / Time Cephalosporins Allergy Intermediate HIVES Verified 05/03/22 22:03 moxifloxacin Allergy Mild RASH Verified 05/03/22 22:03 Penicillins Allergy Mild Hives Verified 05/03/22 22:03 Consultations 05/03/22 23:11 ED Decision to Admit Stat Ordered Studies 05/03/22 20:54 CT angio chest PE protocol Stat FINDINGS: CTA: Heart is normal in size. Extensive coronary artery calcifications. No thoracic aortic aneurysm or dissection. The lobar, segmental and subsegmental pulmonary emboli within the left upper lobe and lingula. No definite evidence of right heart strain. CT CHEST: No thyroid nodule or lymphadenopathy identified. Trace left pleural effusion. The inferior right lung base is only partially imaged. No pneumothorax or overt pulmonary edema. Mild left basilar atelectasis with subsegmental consolidation of the inferior segment lingula. No acute process of the imaged upper abdomen. Unremarkable soft tissues. Degenerative changes of the shoulders and spine. IMPRESSION: 1. Acute appearing left-sided pulmonary emboli with trace left pleural effusion. 2. Subsegmental consolidation of the inferior segment lingula may represent atelectasis versus a small developing pulmonary infarct. 05/04/22 01:59 US venous doppler LE BI Routine FINDINGS: There is no sonographic evidence of deep venous thrombosis identified in the right or left lower extremity. The common femoral, superficial femoral, and popliteal veins are patent and normally compressible bilaterally. The greater saphenous vein and the profunda femoris vein at the junction with the common femoral vein are clear in both legs. The visualized calf veins are patent bilaterally. IMPRESSION: There is no sonographic evidence of deep venous thrombosis identified in the right or left lower extremity. Hospital Course (1) Pulmonary embolism on left: (2) Pleuritic chest pain: (3) History of COVID-19: This is an 86-year-old male, who presents with chest pain. 1. Chest pain and also pain increased when taking deep breath/pleuritic chest pain. Troponins and EKG, no acute findings. CTA chest showing acute-appearing left-sided pulmonary emboli with trace left pleural effusion. Pt was started on IV heparin in the ER. IV heparin continued throughout his hospital stay, and his chest pain significantly improved within hours. Currently he is very comfortable, denies any chest pain, denies any shortness of breath. Lower extremity Dopplers were obtained, and negative for any DVT. Echocardiogram was obtained, Normal LV chamber size and wall thickness. Normal LV systolic function, EF 60 to 65%. No segmental LV wall motion abnormalities are noted. LV cavity size is normal (basal dimension less than 4.2 cm in right ventricular apical four- chamber view). The RV systolic function is normal as assessed by tricuspid annular plane systolic excursion, TAPSE, normal greater than 1.5 cm. Grade 1 diastolic dysfunction. No significant valvular pathology. Patient is feeling well, and will be discharged on Eliquis. Patient's already picked up prescription. 2. History of hypertension. Continue amlodipine, losartan, hydrochlorothiazide, metoprolol succinate.monitor the blood pressure. 3. History of sleep apnea. CPAP at bedtime. 4. Hyperlipidemia. On statin. 5. Chronic kidney disease, stage III. Creatinine 1.1. Follow the labs. 6. Generalized anxiety disorder. The patient is on Zoloft. By CMS guidelines, a determination that the admission or continued stay is not medically necessary has been made by a member of the UR committee and a physician for this hospital stay, therefore a Code 44 will be completed and the Inpatient admission will be changed to outpatient. Total Time Total Time Spent Total Time Spent (In Minutes): 40 Discharge Plan Discharge Items Patient Disposition: Home - Self-Care Reason For Visit: CHEST PAIN, PE Discharge Diagnosis: Pulmonary embolism Positive COVID-19 Chest pain Activity: Per Instructions section Non-emergency contact: Primary Care Provider Call non-emergency contact if: you have any medication questions and your symptoms worsen Follow-up/Referrals: Gera Alvarado DO [Primary Care Provider] - (Date & Time 05/09/2022 1:40 PM Provider Gera Alvarado DO Department [facility] ) Diet: Heart Healthy Addtl Attending Provider Instructions: Follow-up with your primary care doctor, the appointment was scheduled for you for May 09. Take Eliquis 10 mg (2 tabs) twice a day for 1 week, then take Eliquis 5 mg (1 tab) twice a day. Discuss with your primary care physician how long you should be on this medication. Do not recommend to exert yourself, and if you start to feel short of breath, develop chest pain, or any other severe concerning symptoms, present to emergency room for further evaluation, or at least contact primary care physician for further guidance. Addtl [employer] Provider Instructions: Home Isolation COVID-19 Instructions The following information about Home Isolation is from the CDC Website: https://www.cdc.gov/coronavirus/2019-ncov/hcp/iaggixfp-lwjlpyk-przzll.html Stay home except to get medical care People who are mildly ill with COVID-19 are able to isolate at home during their illness. You should restrict activities outside your home, except for getting medical care. Do not go to work, school, or public areas. Avoid using public transportation, ride-sharing, or taxis. Separate yourself from other people and animals in your home People: As much as possible, you should stay in a specific room and away from other people in your home. Also, you should use a separate bathroom, if available. Animals: You should restrict contact with pets and other animals while you are sick with COVID-19, just like you would around other people. Although there have not been reports of pets or other animals becoming sick with COVID-19, it is still recommended that people sick with COVID-19 limit contact with animals until more information is known about the virus. When possible, have another member of your household care for your animals while you are sick. If you are sick with COVID-19, avoid contact with your pet, including petting, snuggling, being kissed or licked, and sharing food. If you must care for your pet or be around animals while you are sick, wash your hands before and after you interact with pets and wear a face mask. Call ahead before visiting your doctor If you have a medical appointment, call the healthcare provider and tell them that you have or may have COVID-19. This will help the healthcare providers office take steps to keep other people from getting infected or exposed. Wear a face mask You should wear a face mask when you are around other people (e.g., sharing a room or vehicle) or pets and before you enter a healthcare providers office. If you are not able to wear a face mask (for example, because it causes trouble breathing), then people who live with you should not stay in the same room with you, or they should wear a face mask if they enter your room. Cover your coughs and sneezes Cover your mouth and nose with a tissue when you cough or sneeze. Throw used tissues in a lined trash can. Immediately wash your hands with soap and water for at least 20 seconds or, if soap and water are not available, clean your hands with an alcohol-based hand supervisor newspaper deliveries that contains at least 60% alcohol. Clean your hands often Wash your hands often with soap and water for at least 20 seconds, especially after blowing your nose, coughing, or sneezing; going to the bathroom; and before eating or preparing food. If soap and water are not readily available, use an alcohol-based hand supervisor newspaper deliveries with at least 60% alcohol, covering all surfaces of your hands and rubbing them together until they feel dry. Soap and water are the best option if hands are visibly dirty. Avoid touching your eyes, nose, and mouth with unwashed hands. Avoid sharing personal household items You should not share dishes, drinking glasses, cups, eating utensils, towels, or bedding with other people or pets in your home. After using these items, they should be washed thoroughly with soap and water. Clean all high-touch surfaces everyday High touch surfaces include counters, tabletops, doorknobs, bathroom fixtures, toilets, phones, keyboards, tablets, and bedside tables. Also, clean any surfaces that may have blood, stool, or body fluids on them. Use a household cleaning spray or wipe, according to the label instructions. Labels contain instructions for safe and effective use of the cleaning product including precautions you should take when applying the product, such as wearing gloves and making sure you have good ventilation during use of the product. Monitor your symptoms Seek prompt medical attention if your illness is worsening (e.g., difficulty breathing).Beforeseeking care, call your healthcare provider and tell them that you have, or are being evaluated for, COVID-19. Put on a face mask before you enter the facility. These steps will help the healthcare providers office to keep other people in the office or waiting room from getting infected or exposed. Ask your healthcare provider to call the local or state health department. Persons who are placed under active monitoring or facilitated self- monitoring should follow instructions provided by their local health department or occupational health professionals, as appropriate. When working with your local health department check their available hours. If you have a medical emergency and need to call 911, notify the dispatch personnel that you have, or are being evaluated for COVID-19. If possible, put on a face mask before emergency medical services arrive. Discontinuing home isolation Patients with confirmed COVID-19 should remain under home isolation precautions until the risk of secondary transmission to others is thought to be low. The decision to discontinue home isolation precautions should be made on a knuw-aw-nczp basis, in consultation with healthcare providers and state and local health departments. Coronavirus disease 2019 (COVID-19) is a virus that causes a respiratory illness. It is caused by a coronavirus called 2019 novel coronavirus (2019- nCoV). There are many types of coronavirus. Coronaviruses are a very common cause of bronchitis. They may sometimes cause lung infection(pneumonia). Symptoms can range from mild to severe respiratory illness. These viruses are also foundin some animals. COVID-19 was first found in people in [facility], in late 2018. In 2020, several cases of COVID-19 have been confirmed in the [place] Public health officials are working to find the source. How the virus spreads is not yet fully known. It may be spread through droplets of fluid that a person coughs or sneezes into the air. It may be spread if you touch a surface with virus on it, such as a handle or object, and then touch your mouth. What are the symptoms of COVID-19? Some people have no symptoms or mild symptoms. Symptoms may appear 2 to 14 days after contact with the virus. Symptoms can include: Fever Coughing Trouble breathing What are possible complications from COVID-19? In many cases, this virus can cause infection (pneumonia) in both lungs. In some cases, this can cause . How is COVID-19 diagnosed? Your healthcare provider will ask about your symptoms. He or she will also ask about your recent travel and contact with sick people. Testing for the virus is only done through the CDC. If yourhealthcare provider thinks you may have COVID- 19, he or she will work with your local health department and the CDC on testing. Follow all instructions from your healthcare provider. COVID-19 is diagnosed by: Nasal and throat swab. A cotton-tipped swab is wiped inside your nose or throat. This is done to check for viruses in your nasal mucus. Sputum culture. A small sample of mucus coughed from your lungs (sputum) is collected if you have a cough. It is checked for the virus. How is COVID-19 treated? There is currently no medicine to treat the virus. Treatment is done to help your body while it fights the virus. This is known as supportive care. Supportive care may include: Pain medicine. These include acetaminophen and ibuprofen. They are used to help ease pain and reduce fever. Bed rest. This helps your body fight the illness. For severe illness, you may need to stay in the hospital. Care during severe illness may include: IV (intravenous) fluids.These are given through a vein to help keep your body hydrated. Oxygen. Supplemental oxygen or ventilation with a breathing machine (ventilator) may be given. This is done to keep enough oxygen in your body. Are you at risk for COVID-19? If youve been to a place where people have been sick with this virus, you are at risk for infection. You are at risk if you: Recently traveled to an affected area Had contact with a sick person who recently traveled to this area Had contact with a person who was diagnosed with COVID-19 How can COVID-19 be prevented? There is no vaccine yet. The best prevention is to not have contact with the virus. The CDC advises that people should not travel to areas where there are COVID-19 outbreaks right now for any reason that is not urgent. To help prevent spreading the infection, wash your hands often, or use an alcohol-basedhand supervisor newspaper deliveries. If you are in an area with COVID-19: Wash your hands often. Or use an alcohol-based hand supervisor newspaper deliveries often. Only touch your eyes, nose, or mouth with clean hands. Dont have contact with people who are sick. Follow local instructions about being in public. For example, you may be told to not use public transport for a period of time. Stay away from markets that have live or animals. Wash your hands after touching any animals. Don't touch animals that may be sick. Dont share eating or drinking tools with sick people. Dont kiss someone who is sick. Clean surfaces often with disinfectant. If you were in an area with COVID-19 in the last 14 days: Call your healthcare provider. He or she can talk with local health staff to see what action may be needed. Follow all instructions from your provider. Take your temperature every morning and evening for at least 14 days. This is to check for fever. Keep a record of the readings. Keep watch for symptoms of the virus. Tell your provider right away if you have symptoms. If you were in an area with COVID-19 and have a fever or other symptoms: Dont panic. Keep in mind that other illnesses can cause similar symptoms. Stay away from work, school, and public places. Limit physical contact with family members. Don't kiss anyone or share eating or drinking utensils. Clean surfaces you touch with disinfectant. This is to help prevent the virus from spreading. Call your healthcare provider. Explain that you have been exposed to COVID-19 and have symptoms. Do this before going to any hospital. Wait for instructions. Keep in mind that healthcare staff may wear protective equipment such as masks, gowns, gloves, and eye protection. You may be put in a separate room. This is to prevent the possible virus from spreading. Tell the healthcare staff about recent travel. This includes local travel on public transport. Staff may need to find other people you have been in contact with. Follow all instructions the healthcare staff give you. If you have been diagnosed with COVID-19 Follow all instructions from your healthcare provider. Dont leave your home, except to get medical care. Call your healthcare providers office before going. They can prepare and give you instructions. This will help prevent the virus from spreading. Dont go to work, school, or public areas. Dont use public transport or taxis. Stay away from other people in your home. Have them wear face masks around you. Dont share household items or food. Wear a face mask if you can. This includes at home or in a medical facility. Cover your face with a tissue when you cough or sneeze. Throw the tissue away. Wash your hands. Wash your hands often. Caregivers should: Follow all instructions from healthcare staff. Wear a face mask and protective clothing as advised. Wash hands often. Keep track of the sick persons symptoms. Clean surfaces, fabrics, and laundry thoroughly. Keep other people away from the sick person. When to call your healthcare provider Call your healthcare provider: If youve recently traveled and have symptoms If you have been diagnosed with COVID-19 and your symptoms are worse To learn more To find out more about COVID-19, visit the CDC website at www.cdc.gov/coronavirus/2019-ncov/index.html. 9771-[address] [employer] [place] [address]. All rights reserved. This information is not intended as a substitute for professional medical care. Always follow your healthcare professional's instructions. This information has been adapted from [employer] Pending Studies at Discharge: No Stand-Alone Forms: My [facility] [place], Smoking Cessation Medications and DC Order Prescriptions: New Eliquis 5 mg (74 tabs) tablets,dose pack 5 mg PO BID Qty: 74 0RF Continued tamsulosin 0.4 mg capsule 0.4 mg PO DAILY Qty: 90 3RF Rx Instructions: 30 minutes after a meal solifenacin [Vesicare] 5 mg tablet 5 mg PO DAILY Qty: 90 3RF divalproex 250 mg tablet,delayed release (DR/EC) 250 mg PO QAM amlodipine 5 mg tablet 5 mg PO QAM acetaminophen [Tylenol Arthritis Pain] 650 mg Tablet Extended Release 650 mg PO QAM hydrochlorothiazide 12.5 mg capsule 12.5 mg PO HS metoprolol succinate 25 mg tablet extended release 24 hr 25 mg PO QAM rosuvastatin 5 mg tablet 5 mg PO QPM loperamide 2 mg Tablet 2 mg PO QID PRN (Reason: Diarrhea) budesonide [Pulmicort] 0.5 mg/2 mL Suspension For Nebulization 0.5 mg inhalation DAILY PRN (Reason: Congestion) diclofenac sodium 1 % gel 1 ea TOPICAL DAILY Rx Instructions: apply to bilat hands sertraline 100 mg tablet 100 mg PO QAM losartan 50 mg tablet 50 mg PO QAM Discharge Orders: Discharge Order (Routine); Ordered 05/05/22 Ordered By: Bishop Silvestre Admission Data Admit Date/Time: 05/04/22 00:49 Attending Provider: Bishop Silvestre Admit Provider: Juan Odell Primary Care Provider: Gera Alvarado Other Providers: Juan Odell
[2022-05-05] MEDS ORDERED: APIXABAN 5 MG TABLET PO SCH (17:00)
--- NOTE | 2022-05-12 07:19 | Coding Query ---
CODING QUERY To promote full compliance with coding requirements relating to patient care, provider participation is requested in all cases of telephone instrument supervisor uncertainty. Please assist us with the question(s) below: Coding Question(s): The Discharge Summary documents in the Principal Diagnosis area and down lower in the Discharge Diagnosis, "Positive COVID-19", and the Hospital Course documents, "History of COVID-19" and the admission HPI documents, "he patient was diagnosed with COVID in the end of February". Please clarify below, in your clinical opinion, regarding Positive COVID-19 and History of COVID-19. ( ) Positive COVID-19 on this admission, and also with a history of COVID-19 that the patient had recovered from ( ) Positive COVID-19 on this admission, and is still ongoing COVID-19 infection from the end of February ( ) there is only a history of Covid-19, nothing more on this admission (x ) Other: Please Specify___it is not clear if pt had possible re-infection w/ covid 19 Physician's Response(s): Thank you Maria E Delgado Principal Diagnosis: "that condition established after study, to be chiefly responsible for occasioning the admission of the patient to the hospital for care." Co-Existing Principal Diagnosis: "when two or more diagnoses equally meet the criteria for principal diagnosis as determined by the circumstances of admission, diagnostic work up, and/or therapy provided, and the Alphabetic Index, Tabular List, or another coding guideline does not provide sequencing direction, any one of the diagnoses may be sequenced first." "When the physician has documented what appears to be a current diagnosis in the body of the record, but has not included the diagnosis in the final diagnostic statement, the physician should be asked whether the diagnosis should be added." (Source [facility]oding [facility] 2 QTR90. p3-4) KONGD
== END 2022-05-05 18:53 | disposition home or self-care (01) | DRG 176 ==
LOC: ED 20:11 → 2E 05-04 00:49 → INTOOBSV 05-04 00:49 → 2E 05-04 01:41
DX: Z88.0 Allergy status to penicillin; I12.9 Hypertensive chronic kidney disease with stage 1 through stage 4 chronic kidney disease, or unspecified chronic kidney disease; I26.99 Other pulmonary embolism without acute cor pulmonale; Z99.89 Dependence on other enabling machines and devices; G47.33 Obstructive sleep apnea (adult) (pediatric); Z87.891 Personal history of nicotine dependence; E78.5 Hyperlipidemia, unspecified; Z86.16 Personal history of COVID-19; F41.1 Generalized anxiety disorder; Z88.1 Allergy status to other antibiotic agents; J45.909 Unspecified asthma, uncomplicated; N18.30 Chronic kidney disease, stage 3 unspecified

== ENCOUNTER 2023-01-01 21:00 | Inpatient (IN) ==
[2023-01-01] MEDS ORDERED: SODIUM CHLORIDE 0.9% 500 ML IV ONE (22:56)
[2023-01-01] MEDS ORDERED: fentaNYL citrate PF 100 MCG/2 ML VIAL IV STA (22:59)
--- NOTE | 2023-01-01 22:59 | Emergency Department Note ---
Impression & Plan Bilateral pulmonary embolism, Pulmonary infarction, Hypoxia ED Provider Note Name: TIGRE ESPOSITO Age: 87 Sex: M Arrives Via: Walk-In Informant: Patient, . ED Provider: Sung Bauman MD Chief Complaint: Shortness of breath Impression: As per impressions above Medical Decision Making: Pleasant 87-year-old gentleman who was hospitalized about 9 months ago for an embolism in his lungs following COVID. Patient states that he was doing well off his Eliquis for the last 6 months. Developed increasing shortness of breath throughout the day. Patient is significantly short of breath and dyspneic on evaluation. Patient given a small dose of fentanyl IV with significant improvement in pain. Fortunately vitals are not overly concerning other than he is a bit on the hypoxic side right around 88% on room air. CT PE study was ordered along with some fluids and labs. CT clearly shows a right lower lobe infarct along with multiple PEs throughout. Discussed risk benefits of heparin with patient he agrees to proceed. Denies any recent head injuries headache bl ack or bloody stools or abdominal pain. Patient started on heparin no significant issues and is feeling much better on nasal cannula O2. Prior Medical Record and Triage/Nursing Notes reviewed by Me External chart reviewed by me including hospitalization records from earlier this year discussing his PE. Differentials:Reactive airway disease, pneumonia, pneumothorax, COPD, CHF, infections, cardiac ischemia, pulmonary embolism, musculoskeletal, gastrointestinal, as well as other pathologies. Vital Signs: reviewed and remarkable for hypoxia Interventions: Heparin bolus and drip, IV fluids, fentanyl IV Labs:Reviewed and remarkable for no concerning findings Imaging:CT angiogram of the chest. As per my informal interpretation. Multiple PEs throughout with right lower lobe infarct. Confirmed by radiologist EKG:As per my interpretation. Indication shortness of breath. Normal sinus rhythm at 71 bpm QTc of 462. There is no ectopy no ischemia. When compared to an EKG of May 03, 2022 there is no significant change. Cardiac/Tele Monitoring: Cardiac Monitoring: An Order was placed for continuous cardiac monitoring. The monitor shows a rate of 70 with a normal sinus rhythm. Consults:Dr Schuyler Lara hospitalist Plan: Disposition:Hospitalization. Condition: Good History of Present Illness:87-year-old gentleman arrives for evaluation of shortness of breath. Patient notes for the last day or so he has developed increasing right-sided chest pain with shortness of breath. Worse with deep inspiration. Denies any leg swelling, recent travel, calf pain. Does have a history of PE about 9 months ago for which he was on Eliquis for 3 months. Unknown etiology of that PE. Patient states that he has had no recent trauma falls injuries. Denies any syncope, fevers, chills, cough, back pain or other concerning signs or symptoms. Past Medical History:PE, prostate cancer, hypertension, anxiety/depression, dyslipidemia, amongst others Home Medications:See below. Patient is no longer on Eliquis. Allergies:Cephalosporins, moxifloxacin, penicillin Vitals:Blood Pressure: 150/88, Pulse 82, RR 18, T 37.0C, O2 94% on RA Physical Exam: GENERAL: Patient is uncomfortable appearing and in moderate distress. RESPIRATORY: Moderately dyspneic without tachypnea. Clear lung sounds throughout. CARDIOVASCULAR: Regular rate and rhythm.No murmurs, rubs, gallops appreciated. GASTROINTESTINAL: Abdomen soft, non-tender, no peritonitis.Bowel sounds positive.No masses appreciated. EXTREMITIES: Normal motion all extremities, no cyanosis, no edema. NEUROLOGIC: Alert and oriented, no focal neurologic deficit appreciated SKIN: No rash, no jaundice, no diaphoresis. PSYCH: Appropriate GCS: 15 ED Course: Times/Reassessments: Patient appears more comfortable on nasal cannula O2 and following some fentanyl IV. Critical Care: I have personally spent 40 minutes of critical care time in the direct management of this patient. Multiple pulmonary emboli with lung infarction requiring starting heparin. This was a life/limb threatening event. This 40 minutes is in excess of all separately billable procedures. Sung Bauman MD Past Med/Surg History Medical History Anxiety Epistaxis HX History of COVID-19 Hyperlipidemia Hypertension Migraine HX Osteoarthritis Prostate cancer (08/30/12) RESOLVED FOR 5 YRS NOW - RADIOACTIVE SEEDS Surgical History History of adenoidectomy History of colonoscopy History of nasal surgery POLYPS REMOVED History of right cataract surgery History of tonsillectomy Hx of hernia repair Family History Other Colorectal cancer Social History Smoking Status: Never smoker Second Hand Exposure: No; Do You Dip or Chew Tobacco: No; Hx Alcohol Use: No Hx Substance Use: No Preferred Language: Kuwaiti Communication Ability: Effective Practice Professional Required: No Beliefs That Will Affect Care: None marital status: Current Living Situation: Spouse Other Information That Helps Us Care for You: No Feels Safe at Home: Yes Safety Concerns: Feels Safe At This Time Assistive Devices: CPAP Allergies Allergies Allergy/AdvReac Type Severity Reaction Status Date / Time Cephalosporins Allergy Intermediate HIVES Verified 01/02/23 00:06 moxifloxacin Allergy Mild RASH Verified 01/02/23 00:06 Penicillins Allergy Mild Hives Verified 01/02/23 00:06 Home Meds Home Medications Medication Instructions Recorded Confirmed amlodipine 5 mg tablet 5 mg PO QAM 04/08/18 01/02/23 divalproex 250 mg tablet,delayed 250 mg PO QAM 04/08/18 01/02/23 release hydrochlorothiazide 12.5 mg capsule 12.5 mg PO QAM 04/08/18 01/02/23 metoprolol succinate 25 mg 25 mg PO QAM 04/08/18 01/02/23 tablet,extended release 24 hr rosuvastatin 5 mg tablet 5 mg PO QPM 04/08/18 01/02/23 budesonide 0.5 mg/2 mL suspension 0.5 mg inhalation DAILY PRN 05/03/22 01/02/23 for nebulization (Pulmicort) Congestion diclofenac sodium 1 % topical gel 1 ea topical DAILY 05/03/22 01/02/23 loperamide 2 mg tablet 2 mg PO QID PRN Diarrhea 05/03/22 01/02/23 losartan 50 mg tablet 50 mg PO QAM 05/03/22 01/02/23 sertraline 100 mg tablet 100 mg PO QAM 05/03/22 01/02/23 acetaminophen 500 mg tablet 1,000 mg PO Q6H PRN Fever Or Pain 01/02/23 01/02/23 solifenacin 5 mg tablet (Vesicare) 5 mg PO DAILY PRN .OVERACTIVE 01/02/23 01/02/23 BLADDER Previous Rx's Medication Instructions Recorded tamsulosin 0.4 mg capsule 0.4 mg PO DAILY #90 caps 12/09/22 Results & Data (ED) Vital Signs Vital Signs - 24 hr 01/01/23 21:19 Temperature 37.0 C Temperature Source Oral Pulse Rate 82 Respiratory Rate 18 Respiratory Effort / Characteristics Non-Labored Spontaneous Respiratory Depth Normal Respiratory Pattern Regular Blood Pressure 150/88 H Blood Pressure Mean 108 Blood Pressure Position Sitting Pulse Oximetry 94 Oxygen Delivery Method Room Air Sepsis Recent Fever Within 48 Hours No Sepsis New/Unexplained Change in Mental Status N/A Sepsis Action Taken by Nursing No Action Required Laboratory Data 01/02/23 06:49 01/02/23 06:49 Lab Results 01/01/23 01/01/23 01/01/23 Range/Units 23:11 23:11 23:11 WBC 12.12 H (4.8-10.8) K/ul RBC 4.51 L (4.70-6.10) M/uL Hgb 13.8 L (14.0-18.0) g/dl POC Hgb (14.0-18.0) g/dl Hct 39.9 L (42.0-52.0) % POC Hct (42-52) % MCV 88.5 (80.0-100.0) fL MCH 30.6 (25.0-34.0) pg MCHC 34.6 (32.0-36.0) g/dL RDW Std Deviation 42.7 (36.4-46.3) fL RDW Coeff of Quin 13.2 (11.5-14.5) % Plt Count 177 (130-400) K/uL MPV 9.8 (9.4-12.4) fL Immature Gran % (Auto) 0.6 % Neut % (Auto) 77.7 % Lymph % (Auto) 12.6 % Mcduffie % (Auto) 8.2 % Eos % (Auto) 0.7 % Baso % (Auto) 0.2 % Neut # (Auto) 9.41 H (1.40-6.50) K/uL Lymph # (Auto) 1.53 (1.20-3.40) K/uL Mcduffie # (Auto) 0.99 H (0.11-0.59) K/uL Eos # (Auto) 0.09 (0.00-0.50) K/uL Baso # (Auto) 0.03 (0.00-0.20) K/uL Immature Gran # (Auto) 0.07 (0.01-0.20) K/uL PT (9.0-12.0) Seconds INR (0.9-1.1) APTT (21.0-31.0) Seconds PTT Ratio POC Sodium (135-144) mmol/L Sodium 138 (136-145) mmol/L POC Potassium (3.3-5.0) mmol/L Potassium 3.6 (3.5-5.1) mmol/L POC Chloride (101-112) mmol/L Chloride 105 (98-107) mmol/L Carbon Dioxide 24 (21-32) mmol/L POC Total CO2 (24-31) mmol/L Anion Gap 9 (3-11) POC Anion Gap (16-25) mmol/L POC BUN (7-18) mg/dl BUN 26 H (6-23) mg/dl Creatinine 1.07 (0.6-1.4) mg/dl POC Creatinine (0.6-1.3) mg/dl Est Cr Clr Drug Dosing 57.2 ml/min Est GFR ( Amer) 73.0 ml/min Est GFR (Non-Af Amer) 63.0 ml/min BUN/Creatinine Ratio 24.3 H (10-20) Glucose 116 H (70-99(Fasting)) mg/dl POC Glucose (other) (70-99) mg/dl Estimat Average Glucose mg/dl Hemoglobin A1c (4.5-5.6) % Calcium 8.6 (8.6-10.3) mg/dl POC Ioniz Calcium Lissette (1.12-1.32) mmol/l Magnesium 2.0 (1.7-2.4) mg/dl Total Bilirubin 0.8 (0.2-1.0) mg/dl Direct Bilirubin 0.1 (0-0.2) mg/dl AST 12 L (13-39) U/L ALT 13 (7-52) U/L Alkaline Phosphatase 53 (34-104) U/L Troponin I High Sens 12.5 (0-20) pg/ml Total Protein 7.0 (6.0-8.3) gm/dl Albumin 4.1 (3.4-5.0) gm/dl Lipase 14 (11-82) U/L Procalcitonin < 0.05 (0-0.5) ng/ml Valproic Acid (50-100) mcg/ml SARS-CoV-2 (PCR) (Negative) Influenza Type A (PCR) (Neg) Influenza Type B (PCR) (Neg) RSV (RT-PCR) (Neg) 01/01/23 01/01/23 01/01/23 Range/Units 23:11 23:11 23:11 WBC (4.8-10.8) K/ul RBC (4.70-6.10) M/uL Hgb (14.0-18.0) g/dl POC Hgb (14.0-18.0) g/dl Hct (42.0-52.0) % POC Hct (42-52) % MCV (80.0-100.0) fL MCH (25.0-34.0) pg MCHC (32.0-36.0) g/dL RDW Std Deviation (36.4-46.3) fL RDW Coeff of Quin (11.5-14.5) % Plt Count (130-400) K/uL MPV (9.4-12.4) fL Immature Gran % (Auto) % Neut % (Auto) % Lymph % (Auto) % Mcduffie % (Auto) % Eos % (Auto) % Baso % (Auto) % Neut # (Auto) (1.40-6.50) K/uL Lymph # (Auto) (1.20-3.40) K/uL Mcduffie # (Auto) (0.11-0.59) K/uL Eos # (Auto) (0.00-0.50) K/uL Baso # (Auto) (0.00-0.20) K/uL Immature Gran # (Auto) (0.01-0.20) K/uL PT 10.9 (9.0-12.0) Seconds INR 1.0 (0.9-1.1) APTT 30.7 (21.0-31.0) Seconds PTT Ratio 1.1 POC Sodium (135-144) mmol/L Sodium (136-145) mmol/L POC Potassium (3.3-5.0) mmol/L Potassium (3.5-5.1) mmol/L POC Chloride (101-112) mmol/L Chloride (98-107) mmol/L Carbon Dioxide (21-32) mmol/L POC Total CO2 (24-31) mmol/L Anion Gap (3-11) POC Anion Gap (16-25) mmol/L POC BUN (7-18) mg/dl BUN (6-23) mg/dl Creatinine (0.6-1.4) mg/dl POC Creatinine (0.6-1.3) mg/dl Est Cr Clr Drug Dosing ml/min Est GFR ( Amer) ml/min Est GFR (Non-Af Amer) ml/min BUN/Creatinine Ratio (10-20) Glucose (70-99(Fasting)) mg/dl POC Glucose (other) (70-99) mg/dl Estimat Average Glucose 131 mg/dl Hemoglobin A1c 6.2 H (4.5-5.6) % Calcium (8.6-10.3) mg/dl POC Ioniz Calcium Lissette (1.12-1.32) mmol/l Magnesium (1.7-2.4) mg/dl Total Bilirubin (0.2-1.0) mg/dl Direct Bilirubin (0-0.2) mg/dl AST (13-39) U/L ALT (7-52) U/L Alkaline Phosphatase (34-104) U/L Troponin I High Sens (0-20) pg/ml Total Protein (6.0-8.3) gm/dl Albumin (3.4-5.0) gm/dl Lipase (11-82) U/L Procalcitonin (0-0.5) ng/ml Valproic Acid 20 L (50-100) mcg/ml SARS-CoV-2 (PCR) (Negative) Influenza Type A (PCR) (Neg) Influenza Type B (PCR) (Neg) RSV (RT-PCR) (Neg) 01/01/23 01/01/23 Range/Units 23:26 23:54 WBC (4.8-10.8) K/ul RBC (4.70-6.10) M/uL Hgb (14.0-18.0) g/dl POC Hgb 13.3 L (14.0-18.0) g/dl Hct (42.0-52.0) % POC Hct 39 L (42-52) % MCV (80.0-100.0) fL MCH (25.0-34.0) pg MCHC (32.0-36.0) g/dL RDW Std Deviation (36.4-46.3) fL RDW Coeff of Quin (11.5-14.5) % Plt Count (130-400) K/uL MPV (9.4-12.4) fL Immature Gran % (Auto) % Neut % (Auto) % Lymph % (Auto) % Mcduffie % (Auto) % Eos % (Auto) % Baso % (Auto) % Neut # (Auto) (1.40-6.50) K/uL Lymph # (Auto) (1.20-3.40) K/uL Mcduffie # (Auto) (0.11-0.59) K/uL Eos # (Auto) (0.00-0.50) K/uL Baso # (Auto) (0.00-0.20) K/uL Immature Gran # (Auto) (0.01-0.20) K/uL PT (9.0-12.0) Seconds INR (0.9-1.1) APTT (21.0-31.0) Seconds PTT Ratio POC Sodium 140 (135-144) mmol/L Sodium (136-145) mmol/L POC Potassium 3.5 (3.3-5.0) mmol/L Potassium (3.5-5.1) mmol/L POC Chloride 104 (101-112) mmol/L Chloride (98-107) mmol/L Carbon Dioxide (21-32) mmol/L POC Total CO2 26 (24-31) mmol/L Anion Gap (3-11) POC Anion Gap 15.0 L (16-25) mmol/L POC BUN 23 H (7-18) mg/dl BUN (6-23) mg/dl Creatinine (0.6-1.4) mg/dl POC Creatinine 1.2 (0.6-1.3) mg/dl Est Cr Clr Drug Dosing ml/min Est GFR ( Amer) ml/min Est GFR (Non-Af Amer) ml/min BUN/Creatinine Ratio (10-20) Glucose (70-99(Fasting)) mg/dl POC Glucose (other) 116 H (70-99) mg/dl Estimat Average Glucose mg/dl Hemoglobin A1c (4.5-5.6) % Calcium (8.6-10.3) mg/dl POC Ioniz Calcium Lissette 1.04 L (1.12-1.32) mmol/l Magnesium (1.7-2.4) mg/dl Total Bilirubin (0.2-1.0) mg/dl Direct Bilirubin (0-0.2) mg/dl AST (13-39) U/L ALT (7-52) U/L Alkaline Phosphatase (34-104) U/L Troponin I High Sens (0-20) pg/ml Total Protein (6.0-8.3) gm/dl Albumin (3.4-5.0) gm/dl Lipase (11-82) U/L Procalcitonin (0-0.5) ng/ml Valproic Acid (50-100) mcg/ml SARS-CoV-2 (PCR) NEGATIVE (Negative) Influenza Type A (PCR) Negative (Neg) Influenza Type B (PCR) Negative (Neg) RSV (RT-PCR) Negative (Neg) Administered Medications Amlodipine Besylate (Amlodipine Besylate 5 Mg Tab) 5 mg PO [facility] Stop: 02/01/23 08:59 Last Admin: 01/02/23 08:36 Dose: 5 mg Documented By: LUCIA Calcium Carbonate (Calcium Carbonate 500 Mg Chewable Tab) 500 mg PO BID [facility] Stop: 02/01/23 08:59 Last Admin: 01/02/23 19:53 Dose: 500 mg Documented By: Hal Admin: 01/02/23 08:36 Dose: 500 mg Documented By: LUCIA Divalproex Sodium (Divalproex Delay Release 250 Mg Tabec) 250 mg PO [facility] Stop: 02/01/23 08:59 Last Admin: 01/02/23 08:35 Dose: 250 mg Documented By: LUCIA Heparin Sodium/Dextrose (Heparin Sodium/Dextrose) 25,000 units in 500 mls @ 27 mls/hr IV .[id number] [facility]; Protocol Stop: 02/01/23 00:14 Last Admin: 01/02/23 18:04 Dose: 1,350 units/hr, 27 mls/hr Documented By: LUCIA Co-signed By: EP Titration: 01/02/23 18:04 Dose: 1,350 units/hr, 27 mls/hr Documented By: LUCIA Co-signed By: EP Titration: 01/02/23 08:47 Dose: 1,350 units/hr, 27 mls/hr Documented By: LUCIA Co-signed By: Admin: 01/02/23 00:57 Dose: 1,450 units/hr, 29 mls/hr Documented By: ROGER Co-signed By: CLIFTON Lidocaine (Lidocaine 5% 1 Patch) 1 patch TD HS [facility] Stop: 02/01/23 20:59 Last Admin: 01/02/23 19:52 Dose: 1 patch Documented By: ARNALDO Losartan Potassium (Losartan Potassium 50 Mg Tab) 50 mg PO [facility] Stop: 02/01/23 08:59 Last Admin: 01/02/23 08:35 Dose: 50 mg Documented By: LUCIA Metoprolol Succinate (Metoprolol Succ 25mg Ext Rel Tab) 25 mg PO [facility] Stop: 02/01/23 08:59 Last Admin: 01/02/23 08:35 Dose: 25 mg Documented By: LUCIA Miscellaneous (Remove Lidoderm Patch) 1 each N/A [facility] Stop: 02/01/23 11:59 Last Admin: 01/02/23 11:35 Dose: 1 each Documented By: LUCIA Rosuvastatin Calcium (Rosuvastatin Calcium 5 Mg Tab) 5 mg PO QPM [facility] Stop: 02/01/23 20:59 Last Admin: 01/02/23 19:52 Dose: 5 mg Documented By: ARNALDO Sertraline HCl (Sertraline Hcl 100 Mg Tablet) 100 mg PO QAM [facility] Stop: 02/01/23 08:59 Last Admin: 01/02/23 08:36 Dose: 100 mg Documented By: LUCIA Tamsulosin HCl (Tamsulosin Hcl 0.4 Mg Cap) 0.4 mg PO DAILY [facility] Stop: 02/01/23 08:59 Last Admin: 01/02/23 08:36 Dose: 0.4 mg Documented By: LUCIA Discontinued Medications Fentanyl Citrate (Fentanyl Citrate Pf 100 Mcg/2 Ml Vial) 25 mcg IV NOW STA Stop: 01/01/23 23:00 Last Admin: 01/01/23 23:22 Dose: 25 mcg Documented By: ROGER Heparin Sodium (Porcine) (Heparin Sod (Porcine) 1000 Unit/Ml) 1 units IV NOW ONE Stop: 01/02/23 00:09 Last Admin: 01/02/23 00:57 Dose: 5,000 units Documented By: ROGER Co-signed By: CLIFTON Heparin Sodium/Dextrose (Heparin Iv Adult Wt-Based Standard With Bolus Protocol) 1 each IV NOW STA; Protocol Stop: 01/01/23 23:54 Last Admin: 01/02/23 00:19 Dose: Not Given Documented By: ROGER Sodium Chloride (Nss) 500 mls @ 999 mls/hr IV .Q31M ONE Stop: 01/01/23 23:26 Last Infusion: 01/01/23 23:56 Dose: 0 mls/hr Documented By: Admin: 01/01/23 23:25 Dose: 999 mls/hr Documented By: ROGER Sodium Chloride (Nss) 1,000 mls @ 75 mls/hr IV .[id number] STA Stop: 01/02/23 14:06 Last Infusion: 01/02/23 14:53 Dose: 0 mls/hr Documented By: Admin: 01/02/23 00:58 Dose: 75 mls/hr Documented By: ROGER Ioversol (Optiray 320 500ml) 125 ml IV ONCE ONE Stop: 01/01/23 23:46 Last Admin: 01/01/23 23:46 Dose: 113 ml Documented By: ANGELINE Lidocaine (Lidocaine 5% 1 Patch) 1 patch TD ONE STA Stop: 01/02/23 00:49 Last Admin: 01/02/23 00:57 Dose: 1 patch Documented By: ROGER Potassium Chloride (Potassium Chloride Crtab 20 Meq Tabcr) 40 meq PO ONE ONE Stop: 01/02/23 07:56 Last Admin: 01/02/23 08:36 Dose: 40 meq Documented By: LUCIA Discharge Plan Visit Data Chief Complaint: Rib Injury/Pain Stated Complaint: PAIN ON RT SIDE, PAINFUL WHEN BREATHING ED Provider: Sung Bauman Discharge Problem: Bilateral pulmonary embolism, Pulmonary infarction, Hypoxia Patient Disposition: Admitted As Inpatient Discharge Instructions Interventions: ED Discharge Assessment Last Done: 01/02/23 01:56
[2023-01-01 23:35] LABS: Basophils # (auto) 0.03 K/uL (0.00-0.20); Basophils % (auto) 0.2 %; Eosinophils # (auto) 0.09 K/uL (0.00-0.50); Eosinophils % (auto) 0.7 %; Hematocrit (blood only) 39.9 % (42.0-52.0); Hemoglobin 13.8 g/dl (14.0-18.0); Immature Granulocytes # (auto) 0.07 K/uL (0.01-0.20); Immature Granulocytes % (auto) 0.6 %; Lymphocytes # (auto) 1.53 K/uL (1.20-3.40); Lymphocytes % (auto) 12.6 %; Mean Corpuscular Hemoglobin 30.6 pg (25.0-34.0); Mean Corpuscular Hgb Conc 34.6 g/dL (32.0-36.0); Mean Corpuscular Volume 88.5 fL (80.0-100.0); Mean Platelet Volume 9.8 fL (9.4-12.4); Monocytes # (auto) 0.99 K/uL (0.11-0.59); Monocytes % (auto) 8.2 %; Neutrophils # (auto) 9.41 K/uL (1.40-6.50); Neutrophils % (auto) 77.7 %; Platelet Count 177 K/uL (130-400); RDW Coefficient of Variation 13.2 % (11.5-14.5); RDW Standard Deviation 42.7 fL (36.4-46.3); Red Blood Count 4.51 M/uL (4.70-6.10); White Blood Count 12.12 K/ul (4.8-10.8)
[2023-01-01 23:39] LABS: iSTAT Creatinine 1.2 mg/dl (0.6-1.3); iSTAT Hemoglobin 13.3 g/dl (14.0-18.0); iSTAT Ionized Calcium 1.04 mmol/l (1.12-1.32); iSTAT Potassium 3.5 mmol/L (3.3-5.0)
[2023-01-01] MEDS ORDERED: OPTIRAY 320 500ml IV ONE (23:45)
[2023-01-01 23:52] LABS: Troponin I High Sensitivity 12.5 pg/ml (0-20)
[2023-01-01] MEDS ORDERED: Heparin IV Adult Wt-Based Standard WITH Bolus Protocol IV STA (23:53)
[2023-01-02] MEDS ORDERED: HEPARIN SOD (PORCINE) 1000 UNIT/ML IV ONE (00:08)
[2023-01-02 00:13] LABS: Partial Thromboplastin Ratio 1.1; Partial Thromboplastin Time 30.7 Seconds (21.0-31.0); Prothrombin Time 10.9 Seconds (9.0-12.0)
[2023-01-02 00:14] LABS: Albumin Level 4.1 gm/dl (3.4-5.0); BUN Creatinine Ratio 24.3 (10-20); Bilirubin Direct 0.1 mg/dl (0-0.2); Bilirubin,Total 0.8 mg/dl (0.2-1.0); Calcium 8.6 mg/dl (8.6-10.3); Creatinine Clr Calc Pharmacy 57.2 ml/min; Potassium 3.6 mmol/L (3.5-5.1)
--- NOTE | 2023-01-02 00:25 | CT Scan Report ---
CT ANGIOGRAM OF THE CHEST CLINICAL HISTORY: Atypical chest pain. Dyspnea. COMPARISON STUDY: Chest CT dated 05/03/2022. TECHNIQUE: Following the IV administration of 113 cc of Optiray 320, CT angiogram of the chest was pe rformed from the upper abdomen to the thoracic inlet utilizing the pulmonary embolus protocol. Images are reviewed in the axial, sagittal, and coronal planes. 3-D MIPS images are created and assessed. I V contrast was administered without complication. A dose lowering technique was utilized adhering to the principles of ALARA. The examination is degraded by motion artifact. CT DOSE: 920.74 mGy.cm FINDINGS: Thyroid: Imaged portions of the thyroid gland are normal in size and attenuation. Thoracic aorta: The thoracic aorta is normal in caliber and demonstrates standard 3-vessel arch anato my. No dissection is seen. Pulmonary vasculature: The pulmonary trunk is normal in caliber. There is pulmonary embolus within th e right lower lobe pulmonary artery. This extends into segmental and subsegmental pulmonary branches. There are segmental and subsegmental pulmonary emboli within branches of the right upper lobe, left lower lobe, and left upper lobe pulmonary arteries. Heart: The heart is top normal in size and without pericardial effusion. The coronary arteries are de nse and calcified. Lungs and pleural spaces: Evaluation of the lung parenchyma is degraded by motion artifact. There is trace right pleural effusion with right basilar consolidation. Scarring/atelectasis is noted at the l eft lung base. The trachea and central airways are clear. Mediastinum: There is no mediastinal lymphadenopathy. Carol Ann: Clear. Axillae: There is no axillary lymphadenopathy. Upper abdomen: Partially visualized upper abdominal viscera is within normal limits. Skeletal structures: The skeletal structures are osteopenic. No lytic or blastic bony lesions are see n. IMPRESSION: 1. Bilateral pulmonary emboli as above. 2. Trace right pleural effusion with right basilar consolidation. 3. Additional findings as above. ACT 112: Negative or not required by law. Electronically signed by: Milad Chambers M.D. 01/02/2023 12:22 AM
--- NOTE | 2023-01-02 00:41 | History & Physical Report ---
Date of Service January 02, 2023 Assessment & Plan (1) Acute hypoxemic respiratory failure: Plan: Secondary to recurrent pulmonary embolism No obvious provoking factor for new event Possible hypercoagulable state hypertension, stable hyperlipidemia, on statin Rx FORREST on CPAP prostate cancer status post radiation chronic anemia, hemoglobin at baseline anxiety/mood disorder, stable on regimen Hyperglycemia rule out DM past tobacco abuse Medical telemetry Supplemental O2 Baseline ABG IV heparin Patient agreeable to Eliquis on discharge given good tolerance for medication from last admission. Patient will likely need lifelong anticoagulation given second event. Check hemoglobin A1c DVT prophylaxis. IV heparin Full code Text document was generated using [employer] voice recognition software. It may contain grammatical or spelling errors. Kindly contact undersigned for clarification of any documentation item in question. History of Present Illness Chief Complaint: Right-sided chest pain, shortness of breath Primary Care Provider: Gera Alvarado DO History obtained from patient and records. Medical history significant for hypertension, hyperlipidemia, history of PE following COVID-pneumonia status post Eliquis, FORREST on CPAP, prostate cancer status post radiation, chronic anemia (baseline hemoglobin of 13), anxiety/mood disorder, skin cancer status post surgery, past tobacco abuse. Last confinement April 2022 for pulmonary embolism left preceded by COVID-19 illness weeks before admission. Patient discharged on Eliquis course which he took for 3 months. 1 day history of pleuritic right-sided chest pain with shortness of breath without unusual cough symptoms/fluid retention No unusual leg swelling. No recent prolonged travel/periods of immobility/illness. Lowest O2 sats of 88 on room air documented at the ER. IV heparin initiated at the ER for PE. Medical History as above Surgical History : Inguinal hernia repair, sinus surgery, tonsillectomy/adenectomy, cataract surgery, umbilical hernia repair Family History : Heart disease; no known family history of blood clots as per patient Personal/Social history : Past tobacco abuse, occasional EtOH intake, retired schoolteacher Allergies Allergy/AdvReac Type Severity Reaction Status Date / Time Cephalosporins Allergy Intermediate HIVES Verified 01/02/23 00:06 moxifloxacin Allergy Mild RASH Verified 01/02/23 00:06 Penicillins Allergy Mild Hives Verified 01/02/23 00:06 Home Medications Medication Instructions Recorded Confirmed Type amlodipine 5 mg tablet 5 mg PO QAM 04/08/18 01/02/23 History divalproex 250 mg tablet,delayed 250 mg PO QAM 04/08/18 01/02/23 History release hydrochlorothiazide 12.5 mg capsule 12.5 mg PO QAM 04/08/18 01/02/23 History metoprolol succinate 25 mg 25 mg PO QAM 04/08/18 01/02/23 History tablet,extended release 24 hr rosuvastatin 5 mg tablet 5 mg PO QPM 04/08/18 01/02/23 History budesonide 0.5 mg/2 mL suspension 0.5 mg inhalation DAILY PRN 05/03/22 01/02/23 History for nebulization (Pulmicort) Congestion diclofenac sodium 1 % topical gel 1 ea topical DAILY 05/03/22 01/02/23 History loperamide 2 mg tablet 2 mg PO QID PRN Diarrhea 05/03/22 01/02/23 History losartan 50 mg tablet 50 mg PO QAM 05/03/22 01/02/23 History sertraline 100 mg tablet 100 mg PO QAM 05/03/22 01/02/23 History tamsulosin 0.4 mg capsule 0.4 mg PO DAILY #90 caps 12/09/22 01/02/23 Rx acetaminophen 500 mg tablet 1,000 mg PO Q6H PRN Fever Or Pain 01/02/23 01/02/23 History solifenacin 5 mg tablet (Vesicare) 5 mg PO DAILY PRN .OVERACTIVE 01/02/23 01/02/23 History BLADDER Past Med/Surg History Medical History Anxiety Epistaxis HX History of COVID-19 Hyperlipidemia Hypertension Migraine HX Osteoarthritis Prostate cancer (08/30/12) RESOLVED FOR 5 YRS NOW - RADIOACTIVE SEEDS Surgical History History of adenoidectomy History of colonoscopy History of nasal surgery POLYPS REMOVED History of right cataract surgery History of tonsillectomy Hx of hernia repair Family History Other Colorectal cancer Social History Smoking Status: Never smoker Second Hand Exposure: No; Do You Dip or Chew Tobacco: No; Hx Alcohol Use: No Hx Substance Use: No Preferred Language: Mohawk Communication Ability: Effective Forensic Examiner Required: No Beliefs That Will Affect Care: None marital status: Current Living Situation: Spouse Other Information That Helps Us Care for You: No Feels Safe at Home: Yes Safety Concerns: Feels Safe At This Time Assistive Devices: Hearing Aid - Left Review of Systems Review of Systems: As per HPI, all other systems reviewed and negative Physical Exam Physical Exam: GENERAL: Comfortable, pleasant, obese, no respiratory distress SKIN: Normal color, warm HEENT: Scurry palpebral conjunctivae, no ptosis, dry buccal mucosa NECK : Supple, short neck, no tenderness CHEST : Decreased breath sounds, right-sided chest wall tenderness HEART : RRR, no obvious murmurs ABDOMEN: Some distention, nontender EXTREMITIES : No LE swelling/tenderness, no other conspicuous deformities noted NEUROLOGIC : Coherent, no facial asymmetry, no other gross focality Results & Data Results & Data Vital Signs (Past 12 Hours) Vital Signs Temp Pulse Pulse Resp BP BP Pulse Ox 01/01/23 23:55 70 01/01/23 23:49 88 L 01/01/23 23:28 69 18 116/81 93 01/01/23 21:19 37.0 C 82 18 150/88 H 94 O2 Del Method O2 Flow Rate 01/01/23 23:55 01/01/23 23:49 Room Air, Nasal Cannula 0 01/01/23 23:28 Room Air 01/01/23 21:19 Room Air Laboratory Results Laboratory Results WBC 12.12 K/ul (4.8-10.8) H 01/01/23 23:11 RBC 4.51 M/uL (4.70-6.10) L 01/01/23 23:11 Hgb 13.8 g/dl (14.0-18.0) L 01/01/23 23:11 POC Hgb 13.3 g/dl (14.0-18.0) L 01/01/23 23:26 Hct 39.9 % (42.0-52.0) L 01/01/23 23:11 POC Hct 39 % (42-52) L 01/01/23 23:26 MCV 88.5 fL (80.0-100.0) 01/01/23 23:11 MCH 30.6 pg (25.0-34.0) 01/01/23 23:11 MCHC 34.6 g/dL (32.0-36.0) 01/01/23 23:11 RDW Std Deviation 42.7 fL (36.4-46.3) 01/01/23 23:11 RDW Coeff of Quin 13.2 % (11.5-14.5) 01/01/23 23:11 Plt Count 177 K/uL (130-400) 01/01/23 23:11 MPV 9.8 fL (9.4-12.4) 01/01/23 23:11 Immature Gran % (Auto) 0.6 % 01/01/23 23:11 Neut % (Auto) 77.7 % 01/01/23 23:11 Lymph % (Auto) 12.6 % 01/01/23 23:11 Atlantic % (Auto) 8.2 % 01/01/23 23:11 Eos % (Auto) 0.7 % 01/01/23 23:11 Baso % (Auto) 0.2 % 01/01/23 23:11 Neut # (Auto) 9.41 K/uL (1.40-6.50) H 01/01/23 23:11 Lymph # (Auto) 1.53 K/uL (1.20-3.40) 01/01/23 23:11 Atlantic # (Auto) 0.99 K/uL (0.11-0.59) H 01/01/23 23:11 Eos # (Auto) 0.09 K/uL (0.00-0.50) 01/01/23 23:11 Baso # (Auto) 0.03 K/uL (0.00-0.20) 01/01/23 23:11 Immature Gran # (Auto) 0.07 K/uL (0.01-0.20) 01/01/23 23:11 PT 10.9 Seconds (9.0-12.0) 01/01/23 23:11 INR 1.0 (0.9-1.1) 01/01/23 23:11 APTT 30.7 Seconds (21.0-31.0) 01/01/23 23:11 PTT Ratio 1.1 01/01/23 23:11 POC Sodium 140 mmol/L (135-144) 01/01/23 23:26 Sodium 138 mmol/L (136-145) 01/01/23 23:11 POC Potassium 3.5 mmol/L (3.3-5.0) 01/01/23 23:26 Potassium 3.6 mmol/L (3.5-5.1) 01/01/23 23:11 POC Chloride 104 mmol/L (101-112) 01/01/23 23:26 Chloride 105 mmol/L (98-107) 01/01/23 23:11 Carbon Dioxide 24 mmol/L (21-32) 01/01/23 23:11 POC Total CO2 26 mmol/L (24-31) 01/01/23 23:26 Anion Gap 9 (3-11) 01/01/23 23:11 POC Anion Gap 15.0 mmol/L (16-25) L 01/01/23 23:26 POC BUN 23 mg/dl (7-18) H 01/01/23 23:26 BUN 26 mg/dl (6-23) H 01/01/23 23:11 Creatinine 1.07 mg/dl (0.6-1.4) 01/01/23 23:11 POC Creatinine 1.2 mg/dl (0.6-1.3) 01/01/23 23:26 Est Cr Clr Drug Dosing 57.2 ml/min 01/01/23 23:11 Est GFR ( Amer) 73.0 ml/min 01/01/23 23:11 Est GFR (Non-Af Amer) 63.0 ml/min 01/01/23 23:11 BUN/Creatinine Ratio 24.3 (10-20) H 01/01/23 23:11 Glucose 116 mg/dl (70-99(Fasting)) H 01/01/23 23:11 POC Glucose (other) 116 mg/dl (70-99) H 01/01/23 23:26 Calcium 8.6 mg/dl (8.6-10.3) 01/01/23 23:11 POC Ioniz Calcium Lissette 1.04 mmol/l (1.12-1.32) L 01/01/23 23:26 Magnesium 2.0 mg/dl (1.7-2.4) 01/01/23 23:11 Total Bilirubin 0.8 mg/dl (0.2-1.0) 01/01/23 23:11 Direct Bilirubin 0.1 mg/dl (0-0.2) 01/01/23 23:11 AST 12 U/L (13-39) L 01/01/23 23:11 ALT 13 U/L (7-52) 01/01/23 23:11 Alkaline Phosphatase 53 U/L (34-104) 01/01/23 23:11 Troponin I High Sens 12.5 pg/ml (0-20) 01/01/23 23:11 Total Protein 7.0 gm/dl (6.0-8.3) 01/01/23 23:11 Albumin 4.1 gm/dl (3.4-5.0) 01/01/23 23:11 Lipase 14 U/L (11-82) 01/01/23 23:11 Procalcitonin < 0.05 ng/ml (0-0.5) 01/01/23 23:11 Impressions Chest CTA 01/01/23 22:56 CT ANGIOGRAM OF THE CHEST CLINICAL HISTORY: Atypical chest pain. Dyspnea. COMPARISON STUDY: Chest CT dated 05/03/2022. TECHNIQUE: Following the IV administration of 113 cc of Optiray 320, CT angiogram of the chest was performed from the upper abdomen to the thoracic inlet utilizing the pulmonary embolus protocol. Images are reviewed in the axial, sagittal, and coronal planes. 3-D MIPS images are created and assessed. IV contrast was administered without complication. A dose lowering technique was utilized adhering to the principles of ALARA. The examination is degraded by motion artifact. CT DOSE: 920.74 mGy.cm FINDINGS: Thyroid: Imaged portions of the thyroid gland are normal in size and attenuation . Thoracic aorta: The thoracic aorta is normal in caliber and demonstrates standard 3-vessel arch anatomy. No dissection is seen. Pulmonary vasculature: The pulmonary trunk is normal in caliber. There is pulmonary embolus within the right lower lobe pulmonary artery. This extends into segmental and subsegmental pulmonary branches. There are segmental and subsegmental pulmonary emboli within branches of the right upper lobe, left lower lobe, and left upper lobe pulmonary arteries. Heart: The heart is top normal in size and without pericardial effusion. The coronary arteries are dense and calcified. Lungs and pleural spaces: Evaluation of the lung parenchyma is degraded by motion artifact. There is trace right pleural effusion with right basilar consolidation. Scarring/atelectasis is noted at the left lung base. The trachea and central airways are clear. Mediastinum: There is no mediastinal lymphadenopathy. Carol Ann: Clear. Axillae: There is no axillary lymphadenopathy. Upper abdomen: Partially visualized upper abdominal viscera is within normal limits. Skeletal structures: The skeletal structures are osteopenic. No lytic or blastic bony lesions are seen. IMPRESSION: 1. Bilateral pulmonary emboli as above. 2. Trace right pleural effusion with right basilar consolidation. 3. Additional findings as above. ACT 112: Negative or not required by law. Electronically signed by: Milad Chambers M.D. 01/02/2023 12:22 AM Diagnostic Findings EKG as per my interpretation : Rate 70, NSR, normal axis, T wave abnormalities lateral leads
[2023-01-02] MEDS ORDERED: ACETAMINOPHEN 325 MG TAB PO PRN (00:45)
[2023-01-02] MEDS ORDERED: PROMETHAZINE HCL 6.25 MG in SODIUM CHLORIDE 0.9% 50 ML IV PRN (00:45)
[2023-01-02] MEDS ORDERED: MoRPHine SULFATE 2 MG/ML CARP IV PRN (00:45)
[2023-01-02] MEDS ORDERED: traMADol HCL 50 MG TABLET PO PRN (00:45)
[2023-01-02] MEDS ORDERED: SODIUM CHLORIDE 0.9% 1,000 ML IV STA (00:47)
[2023-01-02] MEDS ORDERED: LIDOCAINE 5% 1 PATCH TD STA (00:48)
[2023-01-02] MEDS: HEPARIN SODIUM/DEXTROSE 25,000 UNITS/500 ML BAG IV SCH ×2 (00:57→18:04)
[2023-01-02 01:43] LABS: Influenza A virus by PCR Negative (Neg); Influenza B virus by PCR Negative (Neg); RSV by PCR Negative (Neg); SARS CoV2 RNA(COVID-19) Ceph NEGATIVE (Negative)
[2023-01-02 01:44] LABS: HCO3 ABG 27 mmol/L (19-24); Oxygen Saturation ABG 98.6 % (90-95); PCO2 ABG 40 mmHg (35-46); PO2 ABG 93 mmHg (80-95); pH ABG 7.43 (7.35-7.45)
[2023-01-02 01:49] LABS: Allen Test Pos (Pos)
[2023-01-02] MEDS ORDERED: BUDESONIDE 0.5 MG/2 ML VIAL (PULMICORT) INH PRN (01:56)
[2023-01-02] MEDS ORDERED: OXYBUTYNIN CHLORIDE XL 5 MG TABCR PO PRN (02:09)
[2023-01-02 06:57] LABS: Estimated Average Glucose 131 mg/dl; Hemoglobin A1C 6.2 % (4.5-5.6)
[2023-01-02 07:11] LABS: Basophils # (auto) 0.04 K/uL (0.00-0.20); Basophils % (auto) 0.4 %; Eosinophils # (auto) 0.09 K/uL (0.00-0.50); Eosinophils % (auto) 0.8 %; Hematocrit (blood only) 37.5 % (42.0-52.0); Hemoglobin 12.6 g/dl (14.0-18.0); Immature Granulocytes # (auto) 0.06 K/uL (0.01-0.20); Immature Granulocytes % (auto) 0.6 %; Lymphocytes # (auto) 1.57 K/uL (1.20-3.40); Lymphocytes % (auto) 14.5 %; Mean Corpuscular Hemoglobin 30.1 pg (25.0-34.0); Mean Corpuscular Hgb Conc 33.6 g/dL (32.0-36.0); Mean Corpuscular Volume 89.7 fL (80.0-100.0); Mean Platelet Volume 9.8 fL (9.4-12.4); Monocytes # (auto) 1.05 K/uL (0.11-0.59); Monocytes % (auto) 9.7 %; Neutrophils # (auto) 7.99 K/uL (1.40-6.50); Platelet Count 171 K/uL (130-400); RDW Coefficient of Variation 13.2 % (11.5-14.5); RDW Standard Deviation 43.1 fL (36.4-46.3); Red Blood Count 4.18 M/uL (4.70-6.10)
[2023-01-02 07:29] LABS: Calcium 7.9 mg/dl (8.6-10.3); Creatinine Clr Calc Pharmacy 58.3 ml/min; Est GFR (African American) 74.7 ml/min; Est GFR (Non-African American) 64.4 ml/min; Potassium 3.4 mmol/L (3.5-5.1)
[2023-01-02] MEDS ORDERED: POTASSIUM CHLORIDE CRTAB 20 MEQ TABCR PO ONE (07:55)
[2023-01-02 08:03] LABS: Partial Thromboplastin Ratio 2.4
[2023-01-02] MEDS: LOSARTAN POTASSIUM 50 MG TAB PO SCH (08:35)
[2023-01-02] MEDS: DIVALPROEX DELAY RELEASE 250 MG TABEC PO SCH (08:35)
[2023-01-02] MEDS: METOPROLOL SUCC 25MG EXT REL TAB PO SCH (08:35)
[2023-01-02] MEDS: CALCIUM CARBONATE 500 MG CHEWABLE TAB PO SCH ×2 (08:36→19:53)
[2023-01-02] MEDS: amLODIPine BESYLATE 5 MG TAB PO SCH (08:36)
[2023-01-02] MEDS: TAMSULOSIN HCL 0.4 MG CAP PO SCH (08:36)
[2023-01-02] MEDS: SERTRALINE HCL 100 MG TABLET PO SCH (08:36)
--- NOTE | 2023-01-02 14:15 | Hospitalist Progress Note ---
Date of Service January 02, 2023 Assessment & Plan (1) Acute hypoxemic respiratory failure: Plan: Acute respiratory failure with hypoxia Recurrent pulmonary embolism --Chest CTA:: The pulmonary trunk is normal in caliber. There is pulmonary embolus within the right lower lobe pulmonary artery. This extends into segmental and subsegmental pulmonary branches. There are segmental and subsegmental pulmonary emboli within branches of the right upper lobe, left lower lobe, and left upper lobe pulmonary arteries. The heart is top normal in size and without pericardial effusion. The coronary arteries are dense and calcified. Evaluation of the lung parenchyma is degraded by motion artifact. There is trace right pleural effusion with right basilar consolidation. Scarring/atelectasis is noted at the left lung base. The trachea and central airways are clear. -- Continue IV heparin Normal procalcitonin Patient denies any cough, fever Wean off of supplemental oxygen as able Monitor for any bleeding issues Plan to transition to Eliquis Hypokalemia Hypocalcemia Replete electrolytes as noted Prediabetes HbA1c 6.2 Hypertension Continue amlodipine, losartan, metoprolol Monitor BP Hyperlipidemia on statin FORREST Continue CPAP HS Prostate cancer S/P Radiation chronic anemia Anxiety/mood disorder Past tobacco abuse Continue home medications DVT Px: IV heparin Code Status Full code Admission and Anticipated Discharge Date Admission Date: January 02, 2023 Subjective Patient is seen and examined at bedside States having right-sided pleuritic pain with breathing Denies any nausea, vomiting, dizziness, dyspnea No other complaints Saturating well on 2 L supplemental oxygen Review of Systems Review of Systems: All systems reviewed & are unremarkable except as noted in Subjective Physical Exam Physical Exam: Physical Exam: Vitals signs as noted above General Appearance:Moderately built and nourished, no apparent distress Head: normocephalic, Atraumatic Eyes: normal inspection, EOMI Neck: supple, Trachea midline Respiratory/Chest: Normal breath sounds, CTA, No accessory muscle use Cardiovascular: S1, S2, No murmur Abdomen/GI:Soft, Non tender, Bowel sounds present Extremities/Musculoskeletal:normal inspection, no edema Neurologic/Psych:AAOX3, grossly no focal neurological deficits Skin: normal color, warm Results & Data Results & Data Vital Signs (Past 12 Hours) Vital Signs Temp Pulse Pulse Resp BP Pulse Ox O2 Del Method 01/02/23 11:58 36.7 C 97 H 18 149/77 H 96 Nasal Cannula 10/20/23 08:00 69 01/02/23 08:00 Room Air 01/02/23 07:55 36.9 C 88 20 158/81 H 99 Nasal Cannula 01/02/23 05:32 71 01/02/23 05:19 Nasal Cannula 01/02/23 05:12 37 C 74 20 149/87 H 95 Nasal Cannula O2 Flow Rate 01/02/23 11:58 2 01/02/23 08:00 01/02/23 08:00 01/02/23 07:55 2 01/02/23 05:32 01/02/23 05:19 2 01/02/23 05:12 2 Laboratory Results Short CBC 01/01/23 01/02/23 Range/Units 23:11 06:49 WBC 12.12 H 10.80 (4.8-10.8) K/ul Hgb 13.8 L 12.6 L (14.0-18.0) g/dl Hct 39.9 L 37.5 L (42.0-52.0) % Plt Count 177 171 (130-400) K/uL BMP 01/01/23 01/02/23 23:11 06:49 Sodium 138 138 Potassium 3.6 3.4 L Chloride 105 105 Carbon Dioxide 24 26 BUN 26 H 21 Creatinine 1.07 1.05 Glucose 116 H 111 H Calcium 8.6 7.9 L Liver Function 01/01/23 Range/Units 23:11 Total Bilirubin 0.8 (0.2-1.0) mg/dl Direct Bilirubin 0.1 (0-0.2) mg/dl AST 12 L (13-39) U/L ALT 13 (7-52) U/L Alkaline Phosphatase 53 (34-104) U/L Albumin 4.1 (3.4-5.0) gm/dl
[2023-01-02 16:44] LABS: Partial Thromboplastin Ratio 2.3
[2023-01-02 16:48] LABS: Partial Thromboplastin Time 65.8 Seconds (21.0-31.0)
[2023-01-02] MEDS: LIDOCAINE 5% 1 PATCH TD SCH (19:52)
[2023-01-02] MEDS: ROSUVASTATIN CALCIUM 5 MG TAB PO SCH (19:52)
[2023-01-03 06:40] LABS: Hematocrit (blood only) 35.4 % (42.0-52.0); Hemoglobin 12.2 g/dl (14.0-18.0); Mean Corpuscular Hemoglobin 30.7 pg (25.0-34.0); Mean Corpuscular Hgb Conc 34.5 g/dL (32.0-36.0); Mean Corpuscular Volume 88.9 fL (80.0-100.0); Mean Platelet Volume 10.2 fL (9.4-12.4); Platelet Count 157 K/uL (130-400); RDW Standard Deviation 42.5 fL (36.4-46.3); Red Blood Count 3.98 M/uL (4.70-6.10); White Blood Count 8.31 K/ul (4.8-10.8)
--- NOTE | 2023-01-03 07:18 | Electrocardiogram Report ---
Test Reason : Blood Pressure : / mmHG Vent. Rate : 071 BPM Atrial Rate : 071 BPM P-R Int : 196 ms QRS Dur : 088 ms QT Int : 426 ms P-R-T Axes : 071 060 078 degrees QTc Int : 462 ms Normal sinus rhythm Normal ECG When compared with ECG of 03-MAY-2022 20:29, No significant change was found Confirmed by Tariq Pond ([id number] on 01/03/2023 7:17:54 AM Referred By: REFERRED SELF Confirmed By:Tariq Pond
[2023-01-03 07:21] LABS: BUN Creatinine Ratio 16.5 (10-20); Creatinine Clr Calc Pharmacy 50.6 ml/min; Est GFR (African American) 62.9 ml/min; Est GFR (Non-African American) 54.3 ml/min; Partial Thromboplastin Ratio 2.2; Partial Thromboplastin Time 63.4 Seconds (21.0-31.0); Potassium 3.6 mmol/L (3.5-5.1)
[2023-01-03] MEDS: TAMSULOSIN HCL 0.4 MG CAP PO SCH (08:41)
[2023-01-03] MEDS: APIXABAN 5 MG TABLET PO SCH ×2 (08:41→19:56)
[2023-01-03] MEDS: METOPROLOL SUCC 25MG EXT REL TAB PO SCH (08:41)
[2023-01-03] MEDS: SERTRALINE HCL 100 MG TABLET PO SCH (08:41)
[2023-01-03] MEDS: CALCIUM CARBONATE 500 MG CHEWABLE TAB PO SCH ×2 (08:42→19:57)
[2023-01-03] MEDS: LOSARTAN POTASSIUM 50 MG TAB PO SCH (08:42)
[2023-01-03] MEDS: amLODIPine BESYLATE 5 MG TAB PO SCH (08:42)
[2023-01-03] MEDS: DIVALPROEX DELAY RELEASE 250 MG TABEC PO SCH (08:42)
[2023-01-03] MEDS: hydroCHLOROthiazide 25 MG TAB PO SCH (09:54)
--- NOTE | 2023-01-03 12:39 | Hospitalist Progress Note ---
Date of Service January 03, 2023 Assessment & Plan (1) Acute hypoxemic respiratory failure: Plan: Acute respiratory failure with hypoxia Recurrent pulmonary embolism --Chest CTA:: The pulmonary trunk is normal in caliber. There is pulmonary embolus within the right lower lobe pulmonary artery. This extends into segmental and subsegmental pulmonary branches. There are segmental and subsegmental pulmonary emboli within branches of the right upper lobe, left lower lobe, and left upper lobe pulmonary arteries. The heart is top normal in size and without pericardial effusion. The coronary arteries are dense and calcified. Evaluation of the lung parenchyma is degraded by motion artifact. There is trace right pleural effusion with right basilar consolidation. Scarring/atelectasis is noted at the left lung base. The trachea and central airways are clear. -- Continue IV heparin>> transition to Eliquis Normal procalcitonin Patient denies any cough, fever Wean off of supplemental oxygen as able Monitor for any bleeding issues Continue Eliquis for anticoagulation PT OT evaluation prior to discharge Likely discharge in next 24 to 48 hours if stable Hypokalemia Hypocalcemia Replete electrolytes as noted Prediabetes HbA1c 6.2 Hypertension Continue amlodipine, losartan, metoprolol, HCTZ Monitor BP Hyperlipidemia on statin FORREST Continue CPAP HS Prostate cancer S/P Radiation chronic anemia Anxiety/mood disorder Past tobacco abuse Continue home medications DVT Px: Eliquis Code Status Full code Admission and Anticipated Discharge Date Admission Date: January 02, 2023 Subjective Patient is seen and examined at bedside This pleuritic pain today Dyspnea much improved Saturating well on room air Denies any bleeding issues while on IV heparin No other complaints Review of Systems Review of Systems: All systems reviewed & are unremarkable except as noted in Subjective Physical Exam Physical Exam: Physical Exam: Vitals signs as noted above General Appearance:Moderately built and nourished, no apparent distress Head: normocephalic, Atraumatic Eyes: normal inspection, EOMI Neck: supple, Trachea midline Respiratory/Chest: Normal breath sounds, CTA, No accessory muscle use Cardiovascular: S1, S2, No murmur Abdomen/GI:Soft, Non tender, Bowel sounds present Extremities/Musculoskeletal:normal inspection, no edema Neurologic/Psych:AAOX3, grossly no focal neurological deficits Skin: normal color, warm Results & Data Results & Data Vital Signs (Past 12 Hours) Vital Signs Temp Pulse Pulse Resp BP Pulse Ox O2 Del Method 01/03/23 11:25 36.9 C 77 16 156/77 H 97 Room Air 01/03/23 07:21 67 01/03/23 07:21 Room Air 01/03/23 07:05 36.8 C 71 18 151/83 H 96 Room Air 01/03/23 03:29 36.7 C 70 18 136/78 92 Nasal Cannula O2 Flow Rate 01/03/23 11:25 01/03/23 07:21 01/03/23 07:21 01/03/23 07:05 01/03/23 03:29 1 Laboratory Results Short CBC 01/03/23 Range/Units 05:29 WBC 8.31 (4.8-10.8) K/ul Hgb 12.2 L (14.0-18.0) g/dl Hct 35.4 L (42.0-52.0) % Plt Count 157 (130-400) K/uL BMP 01/03/23 05:29 Sodium 137 Potassium 3.6 Chloride 104 Carbon Dioxide 27 BUN 20 Creatinine 1.21 Glucose 89 Calcium 8.0 L
[2023-01-03] MEDS: ROSUVASTATIN CALCIUM 5 MG TAB PO SCH (19:56)
[2023-01-03] MEDS: LIDOCAINE 5% 1 PATCH TD SCH (19:57)
[2023-01-04 07:08] LABS: Hematocrit (blood only) 37.2 % (42.0-52.0); Hemoglobin 12.6 g/dl (14.0-18.0); Mean Corpuscular Hemoglobin 30.7 pg (25.0-34.0); Mean Corpuscular Hgb Conc 33.9 g/dL (32.0-36.0); Mean Corpuscular Volume 90.5 fL (80.0-100.0); Mean Platelet Volume 9.9 fL (9.4-12.4); Platelet Count 178 K/uL (130-400); RDW Coefficient of Variation 12.9 % (11.5-14.5); RDW Standard Deviation 42.9 fL (36.4-46.3); Red Blood Count 4.11 M/uL (4.70-6.10); White Blood Count 7.93 K/ul (4.8-10.8)
[2023-01-04 07:31] LABS: BUN Creatinine Ratio 17.2 (10-20); Calcium 8.6 mg/dl (8.6-10.3); Creatinine Clr Calc Pharmacy 52.5 ml/min; Est GFR (African American) 66.2 ml/min; Est GFR (Non-African American) 57.1 ml/min; Potassium 3.7 mmol/L (3.5-5.1)
[2023-01-04] MEDS: CALCIUM CARBONATE 500 MG CHEWABLE TAB PO SCH (08:19)
[2023-01-04] MEDS: DIVALPROEX DELAY RELEASE 250 MG TABEC PO SCH (08:19)
[2023-01-04] MEDS: LOSARTAN POTASSIUM 50 MG TAB PO SCH (08:19)
[2023-01-04] MEDS: APIXABAN 5 MG TABLET PO SCH (08:19)
[2023-01-04] MEDS: hydroCHLOROthiazide 25 MG TAB PO SCH (08:19)
[2023-01-04] MEDS: amLODIPine BESYLATE 5 MG TAB PO SCH (08:20)
[2023-01-04] MEDS: METOPROLOL SUCC 25MG EXT REL TAB PO SCH (08:20)
[2023-01-04] MEDS: TAMSULOSIN HCL 0.4 MG CAP PO SCH (08:20)
[2023-01-04] MEDS: SERTRALINE HCL 100 MG TABLET PO SCH (08:20)
--- NOTE | 2023-01-04 11:42 | Hospitalist Progress Note ---
Date of Service January 04, 2023 Assessment & Plan (1) Acute hypoxemic respiratory failure: Plan: Acute respiratory failure with hypoxia Recurrent pulmonary embolism --Chest CTA:: The pulmonary trunk is normal in caliber. There is pulmonary embolus within the right lower lobe pulmonary artery. This extends into segmental and subsegmental pulmonary branches. There are segmental and subsegmental pulmonary emboli within branches of the right upper lobe, left lower lobe, and left upper lobe pulmonary arteries. The heart is top normal in size and without pericardial effusion. The coronary arteries are dense and calcified. Evaluation of the lung parenchyma is degraded by motion artifact. There is trace right pleural effusion with right basilar consolidation. Scarring/atelectasis is noted at the left lung base. The trachea and central airways are clear. -- Continue IV heparin>> transition to Eliquis Normal procalcitonin Patient denies any cough, fever Weaned off of supplemental oxygen Monitor for any bleeding issues Continue Eliquis for anticoagulation 2 step: did not qualify for oxygen Plan to discharge home today Hypokalemia Hypocalcemia Replete electrolytes as noted Prediabetes HbA1c 6.2 Hypertension Continue amlodipine, losartan, metoprolol, HCTZ Monitor BP Hyperlipidemia on statin FORREST Continue CPAP HS Prostate cancer S/P Radiation chronic anemia Anxiety/mood disorder Past tobacco abuse Continue home medications DVT Px: Eliquis Code Status Full code Admission and Anticipated Discharge Date Admission Date: January 02, 2023 Subjective Patient is seen and examined at bedside Pleuritic pain resolved No new complaints Ambulated in hallway with no issues Had 2 step today Review of Systems Review of Systems: All systems reviewed & are unremarkable except as noted in Subjective Physical Exam Physical Exam: Physical Exam: Vitals signs as noted above General Appearance:Moderately built and nourished, no apparent distress Head: normocephalic, Atraumatic Eyes: normal inspection, EOMI Neck: supple, Trachea midline Respiratory/Chest: Normal breath sounds, CTA, No accessory muscle use Cardiovascular: S1, S2, No murmur Abdomen/GI:Soft, Non tender, Bowel sounds present Extremities/Musculoskeletal:normal inspection, no edema Neurologic/Psych:AAOX3, grossly no focal neurological deficits Skin: normal color, warm Results & Data Results & Data Vital Signs (Past 12 Hours) Vital Signs Temp Pulse Pulse Pulse Pulse Resp Resp 01/04/23 11:11 88 65 18 01/04/23 10:57 36.4 C L 68 18 01/04/23 07:19 65 01/04/23 06:42 36.9 C 67 16 01/04/23 04:34 36.9 C 66 18 Resp BP Pulse Ox Pulse Ox Pulse Ox O2 Del Method 01/04/23 11:11 16 92 94 01/04/23 10:57 145/84 H 95 Room Air 01/04/23 07:19 01/04/23 06:42 152/89 H 94 Room Air 01/04/23 04:34 142/88 H 93 Room Air Laboratory Results Short CBC 01/04/23 Range/Units 06:35 WBC 7.93 (4.8-10.8) K/ul Hgb 12.6 L (14.0-18.0) g/dl Hct 37.2 L (42.0-52.0) % Plt Count 178 (130-400) K/uL BMP 01/04/23 06:35 Sodium 140 Potassium 3.7 Chloride 105 Carbon Dioxide 29 BUN 20 Creatinine 1.16 Glucose 97 Calcium 8.6
--- NOTE | 2023-01-04 11:57 | Discharge Summary ---
Date of Service January 04, 2023 Admission HPI Per Admitting Provider History obtained from patient and records. Medical history significant for hypertension, hyperlipidemia, history of PE following COVID-pneumonia status post Eliquis, FORREST on CPAP, prostate cancer status post radiation, chronic anemia (baseline hemoglobin of 13), anxiety/mood disorder, skin cancer status post surgery, past tobacco abuse. Last confinement April 2022 for pulmonary embolism left preceded by COVID-19 illness weeks before admission. Patient discharged on Eliquis course which he took for 3 months. 1 day history of pleuritic right-sided chest pain with shortness of breath without unusual cough symptoms/fluid retention No unusual leg swelling. No recent prolonged travel/periods of immobility/illness. Lowest O2 sats of 88 on room air documented at the ER. IV heparin initiated at the ER for PE. Medical History as above Surgical History : Inguinal hernia repair, sinus surgery, tonsillectomy/adenectomy, cataract surgery, umbilical hernia repair Family History : Heart disease; no known family history of blood clots as per patient Personal/Social history : Past tobacco abuse, occasional EtOH intake, retired schoolteacher Admission Exam Per Admitting Provider GENERAL: Comfortable, pleasant, obese, no respiratory distress SKIN: Normal color, warm HEENT: [place] palpebral conjunctivae, no ptosis, dry buccal mucosa NECK : Supple, short neck, no tenderness CHEST : Decreased breath sounds, right-sided chest wall tenderness HEART : RRR, no obvious murmurs ABDOMEN: Some distention, nontender EXTREMITIES : No LE swelling/tenderness, no other conspicuous deformities noted NEUROLOGIC : Coherent, no facial asymmetry, no other gross focality Principal Diagnosis Acute respiratory failure with hypoxia Recurrent pulmonary embolism Hypokalemia Hypocalcemia Prediabetes Discharge Data Allergies Allergy/AdvReac Type Severity Reaction Status Date / Time Cephalosporins Allergy Intermediate HIVES Verified 01/02/23 00:06 moxifloxacin Allergy Mild RASH Verified 01/02/23 00:06 Penicillins Allergy Mild Hives Verified 01/02/23 00:06 Consultations 01/02/23 00:04 ED Decision to Admit Stat Procedures Performed Laboratory Results WBC 7.93 K/ul (4.8-10.8) 01/04/23 06:35 RBC 4.11 M/uL (4.70-6.10) L 01/04/23 06:35 Hgb 12.6 g/dl (14.0-18.0) L 01/04/23 06:35 POC Hgb 13.3 g/dl (14.0-18.0) L 01/01/23 23:26 Hct 37.2 % (42.0-52.0) L 01/04/23 06:35 POC Hct 39 % (42-52) L 01/01/23 23:26 MCV 90.5 fL (80.0-100.0) 01/04/23 06:35 MCH 30.7 pg (25.0-34.0) 01/04/23 06:35 MCHC 33.9 g/dL (32.0-36.0) 01/04/23 06:35 RDW Std Deviation 42.9 fL (36.4-46.3) 01/04/23 06:35 RDW Coeff of Quin 12.9 % (11.5-14.5) 01/04/23 06:35 Plt Count 178 K/uL (130-400) 01/04/23 06:35 MPV 9.9 fL (9.4-12.4) 01/04/23 06:35 Immature Gran % (Auto) 0.6 % 01/02/23 06:49 Neut % (Auto) 74.0 % 01/02/23 06:49 Lymph % (Auto) 14.5 % 01/02/23 06:49 Schleicher % (Auto) 9.7 % 01/02/23 06:49 Eos % (Auto) 0.8 % 01/02/23 06:49 Baso % (Auto) 0.4 % 01/02/23 06:49 Neut # (Auto) 7.99 K/uL (1.40-6.50) H 01/02/23 06:49 Lymph # (Auto) 1.57 K/uL (1.20-3.40) 01/02/23 06:49 Schleicher # (Auto) 1.05 K/uL (0.11-0.59) H 01/02/23 06:49 Eos # (Auto) 0.09 K/uL (0.00-0.50) 01/02/23 06:49 Baso # (Auto) 0.04 K/uL (0.00-0.20) 01/02/23 06:49 Immature Gran # (Auto) 0.06 K/uL (0.01-0.20) 01/02/23 06:49 PT 10.9 Seconds (9.0-12.0) 01/01/23 23:11 INR 1.0 (0.9-1.1) 01/01/23 23:11 APTT 63.4 Seconds (21.0-31.0) H* 01/03/23 05:29 PTT Ratio 2.2 01/03/23 05:29 ABG pH 7.43 (7.35-7.45) 01/02/23 01:31 ABG pCO2 40 mmHg (35-46) 01/02/23 01:31 ABG pO2 93 mmHg (80-95) 01/02/23 01:31 ABG HCO3 27 mmol/L (19-24) H 01/02/23 01:31 ABG O2 Saturation 98.6 % (90-95) H 01/02/23 01:31 ABG Base Excess 2.0 mEq/L (-9-1.8) H 01/02/23 01:31 Eloy Test Pos (Pos) 01/02/23 01:31 Oxygen Given 0L 01/02/23 01:31 POC Sodium 140 mmol/L (135-144) 01/01/23 23:26 Sodium 140 mmol/L (136-145) 01/04/23 06:35 POC Potassium 3.5 mmol/L (3.3-5.0) 01/01/23 23:26 Potassium 3.7 mmol/L (3.5-5.1) 01/04/23 06:35 POC Chloride 104 mmol/L (101-112) 01/01/23 23:26 Chloride 105 mmol/L (98-107) 01/04/23 06:35 Carbon Dioxide 29 mmol/L (21-32) 01/04/23 06:35 POC Total CO2 26 mmol/L (24-31) 01/01/23 23:26 Anion Gap 6 (3-11) 01/04/23 06:35 POC Anion Gap 15.0 mmol/L (16-25) L 01/01/23 23:26 POC BUN 23 mg/dl (7-18) H 01/01/23 23:26 BUN 20 mg/dl (6-23) 01/04/23 06:35 Creatinine 1.16 mg/dl (0.6-1.4) 01/04/23 06:35 POC Creatinine 1.2 mg/dl (0.6-1.3) 01/01/23 23:26 Est Cr Clr Drug Dosing 52.5 ml/min 01/04/23 06:35 Est GFR ( Amer) 66.2 ml/min 01/04/23 06:35 Est GFR (Non-Af Amer) 57.1 ml/min 01/04/23 06:35 BUN/Creatinine Ratio 17.2 (10-20) 01/04/23 06:35 Glucose 97 mg/dl (70-99(Fasting)) 01/04/23 06:35 POC Glucose (other) 116 mg/dl (70-99) H 01/01/23 23:26 Estimat Average Glucose 131 mg/dl 01/01/23 23:11 Hemoglobin A1c 6.2 % (4.5-5.6) H 01/01/23 23:11 Calcium 8.6 mg/dl (8.6-10.3) 01/04/23 06:35 POC Ioniz Calcium Lissette 1.04 mmol/l (1.12-1.32) L 01/01/23 23:26 Magnesium 2.0 mg/dl (1.7-2.4) 01/03/23 05:29 Total Bilirubin 0.8 mg/dl (0.2-1.0) 01/01/23 23:11 Direct Bilirubin 0.1 mg/dl (0-0.2) 01/01/23 23:11 AST 12 U/L (13-39) L 01/01/23 23:11 ALT 13 U/L (7-52) 01/01/23 23:11 Alkaline Phosphatase 53 U/L (34-104) 01/01/23 23:11 Troponin I High Sens 12.5 pg/ml (0-20) 01/01/23 23:11 Total Protein 7.0 gm/dl (6.0-8.3) 01/01/23 23:11 Albumin 4.1 gm/dl (3.4-5.0) 01/01/23 23:11 Lipase 14 U/L (11-82) 01/01/23 23:11 Procalcitonin < 0.05 ng/ml (0-0.5) 01/01/23 23:11 Valproic Acid 20 mcg/ml (50-100) L 01/01/23 23:11 SARS-CoV-2 (PCR) NEGATIVE (Negative) 01/01/23 23:54 Influenza Type A (PCR) Negative (Neg) 01/01/23 23:54 Influenza Type B (PCR) Negative (Neg) 01/01/23 23:54 RSV (RT-PCR) Negative (Neg) 01/01/23 23:54 Impressions Chest CTA 01/01/23 22:56 CT ANGIOGRAM OF THE CHEST CLINICAL HISTORY: Atypical chest pain. Dyspnea. COMPARISON STUDY: Chest CT dated 05/03/2022. TECHNIQUE: Following the IV administration of 113 cc of Optiray 320, CT angiogram of the chest was performed from the upper abdomen to the thoracic inlet utilizing the pulmonary embolus protocol. Images are reviewed in the ax ial, sagittal, and coronal planes. 3-D MIPS images are created and assessed. IV contrast was administered without complication. A dose lowering technique was utilized adhering to the principles of ALARA. The examination is degraded by motion artifact. CT DOSE: 920.74 mGy.cm FINDINGS: Thyroid: Imaged portions of the thyroid gland are normal in size and attenuation. Thoracic aorta: The thoracic aorta is normal in caliber and demonstrates standard 3-vessel arch anatomy. No dissection is seen. Pulmonary vasculature: The pulmonary trunk is normal in caliber. There is pulmonary embolus within the right lower lobe pulmonary artery. This extends into segmental and subsegmental pulmonary branches. There are segmental and subsegmental pulmonary emboli within branches of the right upper lobe, left lower lobe, and left upper lobe pulmonary arteries. Heart: The heart is top normal in size and without pericardial effusion. The coronary arteries are dense and calcified. Lungs and pleural spaces: Evaluation of the lung parenchyma is degraded by motion artifact. There is trace right pleural effusion with right basilar consolidation. Scarring/atelectasis is noted at the left lung base. The trachea and central airways are clear. Mediastinum: There is no mediastinal lymphadenopathy. [place]: Clear. Axillae: There is no axillary lymphadenopathy. Upper abdomen: Partially visualized upper abdominal viscera is within normal limits. Skeletal structures: The skeletal structures are osteopenic. No lytic or blastic bony lesions are seen. IMPRESSION: 1. Bilateral pulmonary emboli as above. 2. Trace right pleural effusion with right basilar consolidation. 3. Additional findings as above. ACT 112: Negative or not required by law. Electronically signed by: Milad Chambers M.D. 01/02/2023 12:22 AM Ordered Studies 01/01/23 22:56 CT angio chest PE protocol Stat Hospital Course (1) Acute hypoxemic respiratory failure: Acute respiratory failure with hypoxia Recurrent pulmonary embolism --Chest CTA:: The pulmonary trunk is normal in caliber. There is pulmonary embolus within the right lower lobe pulmonary artery. This extends into segmental and subsegmental pulmonary branches. There are segmental and subsegmental pulmonary emboli within branches of the right upper lobe, left lower lobe, and left upper lobe pulmonary arteries. The heart is top normal in size and without pericardial effusion. The coronary arteries are dense and calcified. Evaluation of the lung parenchyma is degraded by motion artifact. There is trace right pleural effusion with right basilar consolidation. Scarring/atelectasis is noted at the left lung base. The trachea and central airways are clear. -- Continue IV heparin>> transition to Eliquis Normal procalcitonin Patient denies any cough, fever Weaned off of supplemental oxygen Monitor for any bleeding issues Continue Eliquis for anticoagulation 2 step: did not qualify for oxygen Plan to discharge home today Hypokalemia Hypocalcemia Replete electrolytes as noted Prediabetes HbA1c 6.2 Hypertension Continue amlodipine, losartan, metoprolol, HCTZ Monitor BP Hyperlipidemia on statin FORREST Continue CPAP HS Prostate cancer S/P Radiation chronic anemia Anxiety/mood disorder Past tobacco abuse Continue home medications DVT Px: Eliquis Code Status Full code Total Time Total Time Spent Total Time Spent (In Minutes): 56 minutes Discharge Plan Discharge Items Patient Disposition: Home - Self-Care Reason For Visit: RESP FAILURE Discharge Diagnosis: Acute respiratory failure with hypoxia Recurrent pulmonary embolism Hypokalemia Hypocalcemia Prediabetes Activity: Per Instructions section Exercise/Sports: Wait until after follow-up appointment Non-emergency contact: Primary Care Provider Call non-emergency contact if: you have any medication questions, your symptoms worsen, your pain is concerning for you and you have a fever Follow-up/Referrals: Gera Alvarado, [Primary Care Provider] - Diet: Heart Healthy Addtl Attending Provider Instructions: Follow-up with your primary care physician in 1 week -- Start taking apixaban 10 mg twice a day until 01/09/23, then take apixaban 5 mg twice a day from 01/10/23. Duration of anticoagulation to be determined by your primary care physician. Seek immediate medical attention if your symptoms reoccur or worsen Please take all medications as instructed on discharge list below. Please call if you have any questions or problems. You can reach a [facility] hospitalist on duty at [facility] 24 hours a day by calling [phone] Pending Studies at Discharge: No Stand-Alone Forms: [facility], Smoking Cessation Medications and DC Order Prescriptions: New Eliquis 5 mg tablet 5 mg PO UD Qty: 60 1RF Rx Instructions: Start taking apixaban 10 mg twice a day until 01/09/23, then take apixaban 5 mg twice a day from 01/10/23 Continued tamsulosin 0.4 mg capsule 0.4 mg PO DAILY Qty: 90 3RF Rx Instructions: 30 minutes after a meal divalproex 250 mg tablet,delayed release (DR/EC) 250 mg PO QAM amlodipine 5 mg tablet 5 mg PO QAM hydrochlorothiazide 12.5 mg capsule 12.5 mg PO QAM metoprolol succinate 25 mg tablet extended release 24 hr 25 mg PO QAM rosuvastatin 5 mg tablet 5 mg PO QPM loperamide 2 mg Tablet 2 mg PO QID PRN (Reason: Diarrhea) budesonide [Pulmicort] 0.5 mg/2 mL Suspension For Nebulization 0.5 mg inhalation DAILY PRN (Reason: Congestion) diclofenac sodium 1 % gel 1 ea TOPICAL DAILY Rx Instructions: apply to bilat hands sertraline 100 mg tablet 100 mg PO QAM losartan 50 mg tablet 50 mg PO QAM solifenacin [Vesicare] 5 mg tablet 5 mg PO DAILY PRN (Reason: .OVERACTIVE BLADDER) acetaminophen [Tylenol Ex Str Rapid Release] 500 mg Tablet 1,000 mg PO Q6H PRN (Reason: Fever Or Pain) Discharge Orders: Discharge Order (Routine); Ordered 01/04/23 Ordered By: Scar Eduardo/Other Patient Handouts: Prediabetes, 5 Steps for Eating Healthier Admission Data Admit Date/Time: 01/02/23 00:44 Attending Provider: Scar Crawley Admit Provider: Edgar Payan Primary Care Provider: Gera Alvarado Other Providers: Edgar Payan
[2023-01-05] MEDS ORDERED: CALCIUM CARBONATE 500 MG CHEWABLE TAB PO SCH (09:00)
== END 2023-01-04 12:50 | disposition home or self-care (01) | DRG 175 ==
LOC: ED 21:00 → EDINP 01-02 00:44 → 2E 01-02 01:56